=== PATIENT | female | born 1955 | race Caucasian/White ===

== ENCOUNTER 2020-12-25 08:13 | Outpatient (RCR) | payer MEDICARE, SELFPAY ==
[2020-12-25] MEDS: COVID-19 VACC, MRNA(PFIZER)/PF 30 MCG/0.3 ML SYRINGE IM (14:20)
[2021-01-25] MEDS: COVID-19 VACC, MRNA(PFIZER)/PF 30 MCG/0.3 ML SYRINGE IM (15:46)
== END 2021-03-19 23:59 ==
LOC: IMMUN 08:13
PROVIDERS: PCP Internal Medicine; Visit Provider Family Medicine
DX: Z23 Encounter for immunization (principal)
CPT/HCPCS: 0001A; 0002A; 91300

== ENCOUNTER 2021-10-22 12:37 | Day surgery (SDC) | payer MEDICARE, MEDICAID, SELFPAY ==
[2021-10-22 13:20] VITALS: BP 132/60; PULSE 86; RESP 16; TEMP 36.4; O2SAT 96; BMI 36.3
--- NOTE | 2021-10-22 13:30 | COLBX_PTH ---
PATIENT: ASHA QUINTERO LOC: EN U#:[id number] AGE/SX: 66/F ROOM: RE10/22/[address]: Dr. Tj Moe DO : 1955 BED: DIS: 10/22/2021 SPEC #: [id number] RECD: 10/22/21 16:58 STATUS: BRY BALAJI #: [id number] HANK: 10/22/21 13:[address]: Tj Moe DEPT: SURGICAL PATHOLOGY RECD BY: Jihan Ty ENTERED: 10/23/21 09:20 SP TYPE: COLON BX OTHR DR: Dr. Juliann Otoole, Tissues: A - Duodenum, NOS B - Esophagus, NOS C - Gastric mucous membrane D - Gastric mucous membrane Procedures: Trichrome (control) Special Stain Group II Surgery Specimen Level IV Alcian Blue/PAS (control) HEADER OPERATION: Colonoscopy, EGD ([facility] [place]) PRE-OP DIAGNOSIS: Anemia, diarrhea, dysphagia TISSUE SUBMITTED: A ? Duodenum biopsy, B ? Distal esophagus biopsy, C ? Biopsy of gastric folds, D ? Colitis at hepatic flexure biopsy MICROSCOPIC DIAGNOSIS A. Duodenum, biopsy: No pathologic change. B. Distal esophagus, biopsy: Fragments of gastric mucosa with mild chronic inflammation. No evidence of goblet cell metaplasia. See comment. C. Gastric folds, biopsy: Chronic gastritis. See comment. D. Colon at hepatic flexure, biopsy: Collagenous colitis. See comment. AM:leatha 10/24/2021 COMMENT B. Alcian blue/PAS stain with matched control supports the above diagnosis. C. Immunohistochemistry for Helicobacter pylori can be performed if clinically indicated. Please notify the Laboratory if it is needed. D. Trichrome stain with matched control was used in the evaluation of this case. MICROSCOPIC DESCRIPTION Slides are reviewed. GROSS DESCRIPTION A - Received in fixative is one container labeled with the patient's name and designated duodenum biopsy. The specimen consists of two irregular fragments of light ling soft tissue that in aggregate measure 0.8 x 0.3 x 0.1 cm. The specimen is totally submitted in one cassette. B - Received in fixative is one container labeled with the patient's name and designated distal esophagus. The specimen consists of two irregular fragments of light ling soft tissue that in aggregate measure 0.6 x 0.4 x 0.1 cm. The specimen is totally submitted in one cassette. C - Received in fixative is one container labeled with the patient's name and designated biopsy of gastric folds. The specimen consists of two irregular fragments of light ling soft tissue that in aggregate measure 0.8 x 0.4 x 0.1 cm. The specimen is totally submitted in one cassette. D - Received in fixative is one container labeled with the patient's name and designated colitis at hepatic flexure biopsy. The specimen consists of multiple irregular fragments of light ling soft tissue that in aggregate measure 0.5 x 0.6 x 0.1 cm. The specimen is totally submitted in one cassette. / SJ:rg 10/23/2021 TC:3 CPT: 33830 x4, 28153 x2
[2021-10-22] MEDS: Lactated Ringers 1,000 ML 15 ML IV (13:31)
--- NOTE | 2021-10-22 13:46 | PCM.HP.BLA ---
History and Physical Date of Admission: 10/22/21 66 F who presents to the office today for further evaluation of anemia. 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 She underwent stent placement and is currently on Brilinta due to frequent bruising from aspirin therapy. She also has a history of CAD status post PTCA with stent. She has no history of myocardial infarction. Several years ago she was diagnosed with a brain aneurysm and underwent clipping. She has a history of aortic aneurysm and her last imaging had showed the aortic aneurysm was 3.2 cm. She has a very difficult time with her diabetes requiring the use of multiple oral medicines. Her last hemoglobin was up to 11 after multiple blood transfusions and iron infusions as per the patient. She has never had a upper or lower endoscopy. She did have a CT scan of the abdomen pelvis earlier this year in December and that it showed some thickening in the stomach. No obvious lesions were seen in her colon. She says that she has been having diarrhea and it was attributed to her Metformin. However her diarrhea has been very difficult to control prior to her going on Metformin. She has been having difficulty with loose stool with undigested food and black dots. Also getting cramps and then she has stool looks like a green gel with a lot of odor. Sometimes swallowing food she feels like food is getting stuck. History of neck surgery to fix ruptured disk in her neck in 2002. Atrophied kidney with stent placed in renal artery. Following this she became fatigued and did not feel right, workup found that she is anemic. Taking vitamin b12 oral (previously injection) and iron. She is on metformin for diabetic management. She has a lot of concern about need for colonoscopy due to living situation. Has aortic aneurysm. She was having a lot of difficulty with bruising and was taken off aspirin, continues Brilinta. Reports abdominal hernia with surgery that resulted in a lot of scar tissue. Require oxygen at night for sleep. She has a high level of stress including a daughter with scleroderma who she provides care for. Also caring for handicap and behavioral sister living with her. ROS Const Constitutional: No anorexia, fatigue, fever(s), weight change or sleep problems Eyes Eyes: No change in vision ENT ENT: No abnormal hearing, difficulty swallowing, mouth lesions, tongue swelling or throat swelling Resp Respiratory: No cough or shortness of breath Cardio Cardiology: No chest pain at rest, chest pain with exertion, shortness of breath or dyspnea on exertion Gastro GI: No difficulty swallowing Genitourinary-Female: No difficulty urinating or burning urination Musc Musculoskeletal: No joint pain, joint swelling, muscle weakness or decreased muscle mass Skin Skin: No hair loss in leg, yellowing of the eye, itchy eyes, rash, skin ulcer or skin swelling Neuro Neurology: No abnormal hearing, abnormal movements, confusion, unsteady gait/balance or memory loss Psych Psychiatric: No anxiety, No confusion and No memory loss Endo Endocrine: No fatigue or weight change Aller/Imm Allergy/Immunologic: No itchy eyes, throat swelling or tongue swelling Lane/Lymp Hematologic/Lymphatic: No easy bleeding, easy bruising or enlarged lymph nodes Exam Const General: cooperative and comfortable Nutritional Appearance: average body habitus and well nourished HENMT Head: normal to inspection Ears: hearing grossly normal bilaterally Nose: external nose normal Face and sinus: normal facial exam Mouth: oral mucosae normal Throat: posterior oropharynx normal Eyes General: appearance normal, both eyes and all related structures Neck Neck: normal visual inspection Chest Chest palpation & inspection: normal inspection of the chest and normal palpation of entire chest wall Resp Effort & Inspection: normal respiratory effort Auscultation: Bilateral: Clear to Auscultation Cardio Palpation: normal PMI Rate: regular rate Rhythm: regular rhythm GI Inspection: obesity and other (Ventral hernia.) Auscultation: normal bowel sounds Percussion: normal to percussion Palpation: no hepatosplenomegaly Skin General: no rashes or lesions noted Neuro General: patient alert Extrem General: normal to inspection Psych Affect: normal affect Assessment and Plan Assessment and Plan (1) Anemia: Plan - Dr. Spencer Friend, DO: She should undergo an upper and lower endoscopy to evaluate as much as her GI tract if possible. If they did not reveal any signs of bleeding or malabsorption then she will need to undergo capsule endoscopy. I am concerned because she is never had a colonoscopy and she has a strong family history of polyps in her sister with more than 9 polyps each time she had a colonoscopy. (2) Diarrhea: Status: Acute Plan - Dr. Spencer Friend, DO: We will evaluate her upper lower GI tract for diarrhea secondary to dumping, medication induced diarrhea anemia, villous adenoma. (3) Dysphagia: Status: Acute Plan - Dr. Spencer Friend, DO: She is also complaining of a lot of trouble swallowing liquids pills. She will undergo upper endoscopy evaluation of her GI tract for eosinophilic esophagitis, esophagitis, esophageal ring Or esophageal stricture. I have re-examined the patient. There are no clinical changes since date of exam.
[2021-10-22 14:41] VITALS: BP 132/60; BP 93/44; PULSE 69; RESP 16; TEMP 36.7; O2SAT 97
--- NOTE | 2021-10-22 14:44 | OP.EGD_ITS ---
Patient Name: Mercy Zhang Procedure Date: 10/22/2021 1:51 PM Date of : 1955 Age: 66 Procedure: Upper GI endoscopy Indications: Dysphagia Providers: Tj Moe DO Medicines: See the Anesthesia note for documentation of the administered medications Patient Profile: This is a 66 year old female. Refer to note in patient chart for documentation of history and physical. Patient has symptoms of chronic dysphagia and dysphagia with solids. Complications: No immediate complications. Procedure: Pre-Anesthesia Assessment: - Prior to the procedure, a History and Physical was performed, and patient medications and allergies were reviewed. The patient is competent. The risks and benefits of the procedure and the sedation options and risks were discussed with the patient. All questions were answered and informed consent was obtained. Patient identification and proposed procedure were verified by the physician in the pre-procedure area. Mental Status Examination: alert and oriented. Airway Examination: normal oropharyngeal airway and neck mobility. Respiratory Examination: clear to auscultation. CV Examination: normal. Prophylactic Antibiotics: The patient does not require prophylactic antibiotics. Prior Anticoagulants: The patient has taken no previous anticoagulant or antiplatelet agents. ASA Grade Assessment: II - A patient with mild systemic disease. After reviewing the risks and benefits, the patient was deemed in satisfactory condition to undergo the procedure. The anesthesia plan was to use moderate sedation / analgesia (conscious sedation). Immediately prior to administration of medications, the patient was re-assessed for adequacy to receive sedatives. The heart rate, respiratory rate, oxygen saturations, blood pressure, adequacy of pulmonary ventilation, and response to care were monitored throughout the procedure. The physical status of the patient was re-assessed after the procedure. After obtaining informed consent, the endoscope was passed under direct vision. Throughout the procedure, the patient's blood pressure, pulse, and oxygen saturations were monitored continuously. The colonoscope was introduced through the mouth, and advanced to the second part of duodenum. The upper GI endoscopy was accomplished without difficulty. The patient tolerated the procedure well. Moderate Sedation: Moderate (conscious) sedation was administered by the endoscopy nurse and supervised by the endoscopist. The following parameters were monitored: oxygen saturation, heart rate, blood pressure, and response to care. Total physician intraservice time was 15 minutes. Scope In: 2:08:08 PM Scope Out: 2:16:52 PM Total Procedure Duration Time 0 hours 8 minutes 44 seconds Findings: LA Grade A (one or more mucosal breaks less than 5 mm, not extending between tops of 2 mucosal folds) esophagitis with no bleeding was found 34 to 35 cm from the incisors. Biopsies were taken with a cold forceps for histology. Verification of patient identification for the specimen was done. Estimated blood loss was minimal. A moderate Schatzki ring was found in the middle third of the esophagus. A guidewire was placed and the scope was withdrawn. Dilation was performed with a Savary dilator with no resistance at 54 Fr. The dilation site was examined following endoscope reinsertion and showed moderate improvement in luminal narrowing. Estimated blood loss was minimal. Diffuse prominent gastric folds were found in the gastric body. Biopsies were taken with a cold forceps for histology. Verification of patient identification for the specimen was done. Estimated blood loss was minimal. Localized mildly erythematous mucosa without active bleeding and with no stigmata of bleeding was found in the duodenal bulb and in the first portion of the duodenum. Biopsies were taken with a cold forceps for histology. Estimated blood loss was minimal. Impression: - LA Grade A reflux esophagitis. Biopsied. - Moderate Schatzki ring. Dilated. - Enlarged gastric folds. Biopsied. - Erythematous duodenopathy. Biopsied. Recommendation: - Discharge patient to home. - Resume previous diet. - Continue present medications. - Await pathology results. - Repeat upper endoscopy in 1 year for surveillance. - Return to GI office in 2 weeks. Procedure Code(s): --- Professional --- 45112, Esophagogastroduodenoscopy, flexible, transoral; with insertion of guide wire followed by passage of dilator(s) through esophagus over guide wire 88527, 59, Esophagogastroduodenoscopy, flexible, transoral; with biopsy, single or multiple 86523, 59, Moderate sedation services provided by the same physician or other qualified health resident care technician performing the diagnostic or therapeutic service that the sedation supports, requiring the presence of an independent trained observer to assist in the monitoring of the patient's level of consciousness and physiological status; initial 15 minutes of intraservice time, patient age 5 years or older CPT copyright 2017 [employer]. All rights reserved. The codes documented in this report are preliminary and upon salt maker review may be revised to meet current compliance requirements. Tj Moe DO 10/22/2021 2:44:28 PM This report has been signed electronically. Number of Addenda: 1 Note Initiated On: 10/22/2021 1:51 PM Addendum Number: 1 Addendum Date: 06/19/2022 6:12:37 AM MAC was used instead of moderate sedation for the patient. Tj Moe DO 06/19/2022 6:12:41 AM This report has been signed electronically.
--- NOTE | 2021-10-22 14:44 | OP.CCLET_ITS ---
06/19/2022 Juliann Otoole Do Re : Upper GI endoscopy procedure for Mercy Zhang Dear Sydnie This procedure was performed on Friday, October 22, 2021. My impressions and recommendations are as follows: Impressions : - LA Grade A reflux esophagitis. Biopsied. - Moderate Schatzki ring. Dilated. - Enlarged gastric folds. Biopsied. - Erythematous duodenopathy. Biopsied. Recommendations : - Discharge patient to home. - Resume previous diet. - Continue present medications. - Await pathology results. - Repeat upper endoscopy in 1 year for surveillance. - Return to GI office in 2 weeks. My findings are described in the full procedure note, which is enclosed. If I can be of further assistance, please feel free to contact me at . Sincerely, Tj Moe, 10/22/2021 2:44:28 PM This report has been signed electronically.
[2021-10-22 14:45] VITALS: BP 132/60; BP 91/40; PULSE 70; RESP 16; O2SAT 98
[2021-10-22 14:46] LABS: Bedside Glucose 206 mg/dL (70-110)
--- NOTE | 2021-10-22 14:49 | OP.COLON_ITS ---
Patient Name: Mercy Zhang Procedure Date: 10/22/2021 2:18 PM Date of : 1955 Age: 66 Procedure: Colonoscopy Indications: Iron deficiency anemia Providers: Tj Moe DO Medicines: See the Anesthesia note for documentation of the administered medications Patient Profile: This is a 66 year old female. Refer to note in patient chart for documentation of history and physical. Patient has symptoms of chronic dysphagia and dysphagia with solids. Last Colonoscopy: date unknown. Complications: No immediate complications. Procedure: Pre-Anesthesia Assessment: - Prior to the procedure, a History and Physical was performed, and patient medications and allergies were reviewed. The patient is competent. The risks and benefits of the procedure and the sedation options and risks were discussed with the patient. All questions were answered and informed consent was obtained. Patient identification and proposed procedure were verified by the physician in the pre-procedure area. Mental Status Examination: alert and oriented. Airway Examination: normal oropharyngeal airway and neck mobility. Respiratory Examination: clear to auscultation. CV Examination: normal. Prophylactic Antibiotics: The patient does not require prophylactic antibiotics. Prior Anticoagulants: The patient has taken no previous anticoagulant or antiplatelet agents. ASA Grade Assessment: II - A patient with mild systemic disease. After reviewing the risks and benefits, the patient was deemed in satisfactory condition to undergo the procedure. The anesthesia plan was to use moderate sedation / analgesia (conscious sedation). Immediately prior to administration of medications, the patient was re-assessed for adequacy to receive sedatives. The heart rate, respiratory rate, oxygen saturations, blood pressure, adequacy of pulmonary ventilation, and response to care were monitored throughout the procedure. The physical status of the patient was re-assessed after the procedure. After I obtained informed consent, the scope was passed under direct vision. Throughout the procedure, the patient's blood pressure, pulse, and oxygen saturations were monitored continuously. The colonoscope was introduced through the anus and advanced to the cecum, identified by appendiceal orifice and ileocecal valve. The colonoscopy was performed without difficulty. The patient tolerated the procedure well. The quality of the bowel preparation was good. Moderate Sedation: Moderate (conscious) sedation was administered by the endoscopy nurse and supervised by the endoscopist. The following parameters were monitored: oxygen saturation, heart rate, blood pressure, and response to care. Total physician intraservice time was 15 minutes. Scope In: 2:21:10 PM Scope Withdrawal Time 0 hours 11 minutes 23 seconds Scope Out: 2:38:26 PM Total Procedure Duration Time 0 hours 17 minutes 16 seconds Findings: The perianal and digital rectal examinations were normal. Multiple small patchy angiodysplastic lesions with stigmata of recent bleeding were found in the transverse colon, at the hepatic flexure, in the ascending colon and in the cecum. Coagulation for bleeding prevention using argon beam at 0.3 liters/minute and 20 harvey was successful. Estimated blood loss was minimal. Scattered mild inflammation characterized by congestion (edema), erythema and loss of vascularity was found in the descending colon, in the transverse colon and at the hepatic flexure. Biopsies were taken with a cold forceps for histology. Verification of patient identification for the specimen was done. Estimated blood loss was minimal. Impression: - Multiple recently bleeding colonic angiodysplastic lesions. Treated with argon beam coagulation. - Scattered mild inflammation was found in the descending colon, in the transverse colon and at the hepatic flexure secondary to colitis. Biopsied. Recommendation: - Discharge patient to home. - Resume previous diet. - Continue present medications. - Await pathology results. - Repeat colonoscopy in 5 years for surveillance. - Return to GI office in 2 weeks. Procedure Code(s): --- Professional --- 01241, 59, Colonoscopy, flexible; with control of bleeding, any method 81032, Colonoscopy, flexible; with biopsy, single or multiple 26054, 59, Moderate sedation services provided by the same physician or other qualified health client care manager performing the diagnostic or therapeutic service that the sedation supports, requiring the presence of an independent trained observer to assist in the monitoring of the patient's level of consciousness and physiological status; initial 15 minutes of intraservice time, patient age 5 years or older CPT copyright 2017 [employer]. All rights reserved. The codes documented in this report are preliminary and upon medical biller coder review may be revised to meet current compliance requirements. Tj Moe DO 10/22/2021 2:48:12 PM This report has been signed electronically. Number of Addenda: 1 Note Initiated On: 10/22/2021 2:18 PM Addendum Number: 1 Addendum Date: 06/19/2022 6:12:49 AM MAC was used instead of moderate sedation for the patient. Tj Moe DO 06/19/2022 6:12:56 AM This report has been signed electronically.
--- NOTE | 2021-10-22 14:49 | OP.CCLET_ITS ---
06/19/2022 Juliann Otoole Do Re : Colonoscopy procedure for Mercy Zhang Dear Sydnie This procedure was performed on Friday, October 22, 2021. My impressions and recommendations are as follows: Impressions : - Multiple recently bleeding colonic angiodysplastic lesions. Treated with argon beam coagulation. - Scattered mild inflammation was found in the descending colon, in the transverse colon and at the hepatic flexure secondary to colitis. Biopsied. Recommendations : - Discharge patient to home. - Resume previous diet. - Continue present medications. - Await pathology results. - Repeat colonoscopy in 5 years for surveillance. - Return to GI office in 2 weeks. My findings are described in the full procedure note, which is enclosed. If I can be of further assistance, please feel free to contact me at . Sincerely, Tj Moe, 10/22/2021 2:48:12 PM This report has been signed electronically.
[2021-10-22 14:50] VITALS: BP 102/57; BP 132/60; PULSE 65; RESP 16; O2SAT 98
[2021-10-22 14:55] VITALS: BP 132/60; BP 93/40; PULSE 64; RESP 16; TEMP 36; O2SAT 99
[2021-10-22 15:29] VITALS: BP 132/60
== END 2021-10-22 23:59 | disposition home or self-care (01) ==
LOC: EN 12:42 → AC 12:42
PROVIDERS: PCP Internal Medicine; Referring Provider Internal Medicine; Visit Provider Internal Medicine Gastroenterology
PROC: 0DJD8ZZ Inspection of Lower Intestinal Tract, Via Natural or Artificial Opening Endoscopic (ICD-10-PCS; CPT 45378; principal; 2021-10-22 13:25)
DX: K52.831 Collagenous colitis (principal); J44.9 Chronic obstructive pulmonary disease, unspecified; E11.9 Type 2 diabetes mellitus without complications; Z79.4 Long term (current) use of insulin; K22.2 Esophageal obstruction; K29.50 Unspecified chronic gastritis without bleeding; K21.00 Gastro-esophageal reflux disease with esophagitis, without bleeding; F17.200 Nicotine dependence, unspecified, uncomplicated; R19.7 Diarrhea, unspecified; R13.10 Dysphagia, unspecified; E66.9 Obesity, unspecified; I25.10 Atherosclerotic heart disease of native coronary artery without angina pectoris; I25.2 Old myocardial infarction; E78.00 Pure hypercholesterolemia, unspecified; I12.9 Hypertensive chronic kidney disease with stage 1 through stage 4 chronic kidney disease, or unspecified chronic kidney disease; N18.9 Chronic kidney disease, unspecified; F41.9 Anxiety disorder, unspecified; M19.90 Unspecified osteoarthritis, unspecified site; Z68.36 Body mass index [BMI] 36.0-36.9, adult; Z95.5 Presence of coronary angioplasty implant and graft; Z99.81 Dependence on supplemental oxygen; Z86.16 Personal history of COVID-19; Z79.84 Long term (current) use of oral hypoglycemic drugs; Z79.899 Other long term (current) drug therapy
CPT/HCPCS: 45380; 43248; 43239; 45382; 82962; 88305; 88313; J7120; C1769; J2405

== ENCOUNTER 2021-12-20 14:43 | Outpatient (CLI) | payer BC, MEDICAID, SELFPAY ==
[2021-12-20 15:28] LABS: Absolute Lymphocyte Count 1.78 X10^3/uL (0.83-4.51); Absolute Neutrophil Count 5.6 X10^3/uL (2.0-7.7); Basophil# 0.07 X10^3/uL; Basophil% 0.8 % (0-1); Eosinophil# 0.31 X10^3/uL; Eosinophils% 3.6 % (0-5); Hematocrit 40.7 % (37-47); Hemoglobin 13.2 g/dL (12.0-15.0); Lymphocyte # 1.78 X10^3/ul (0.83-4.51); Lymphocyte % 20.6 % (19-41); Mean Corp Hgb Conc 32.4 g/dL (32-36); Mean Corpuscular Hgb 28.9 pg (27.0-32.0); Mean Corpuscular Volume 89.1 fL (81-99); Mean Platelet Vol. 10.6 fl (6.2-12.0); Monocyte# 0.81 X10^3/uL; Monocyte% 9.4 % (0-10); NRBC Flagged by Analyzer 0 % (0-5); Platelet Count 265 K/mm3 (150-450); RBC Distribution Width CV 13.8 % (11.6-14.6); RBC Distribution Width SD 45.1 fl (35.1-43.9); RET-HE 33.6 pg (30-35); Red Blood Count 4.57 M/mm3 (4.2-5.4); White Blood Count 8.6 K/mm3 (4.4-11.0)
[2021-12-20 15:35] LABS: Erythrocyte Sedimentation Rate 23 mm/hr (0-30)
[2021-12-20 16:10] LABS: AST(SGOT) 17 U/L (15-37); Alanine Aminotransfer ALT/SGPT 28 U/L (13-56); Albumin, Serum 3.9 g/dL (3.2-5.0); Alkaline Phosphatase 43 U/L (45-117); Anion Gap 5 (5-15); BUN 20 mg/dL (7-18); BUN/Creat Ratio 17.2 RATIO (10-20); CRP < 2.90 mg/L (0.0-3.0); Chloride 103 mmol/L (98-107); Creatinine, Serum 1.16 mg/dL (0.55-1.02); EST Glomerular Filtration Rate 50 mL/min (>60); Est Glom Filt Rate - Afr Amer 60 mL/min (>60); Ferritin 10 ng/mL (8-252); Globulin 4.1 g/dL (2.2-4.2); Glucose 106 mg/dL (74-106); LDH 206 U/L (84-246); Potassium 3.9 mmol/L (3.5-5.1); Rheumatoid Factor < 10.0 IU/mL (<15); Sodium Level 137 mmol/L (136-145)
[2021-12-22 16:08] LABS: Anti-Centromere B Ab <0.2 AI (0.0-0.9); Anti-Chromatin <0.2 AI (0.0-0.9); Anti-Jo <0.2 AI (0.0-0.9); Anti-Scleroderma-70 AB <0.2 AI (0.0-0.9); RNP Ab <0.2 AI (0.0-0.9); SJOGREN'S Anti-SS-A test < 0.2 AI (0.0-0.9); SJOGREN'S Anti-SS-B test < 0.2 AI (0.0-0.9); Smith Ab <0.2 AI (0.0-0.9)
[2021-12-22 17:04] LABS: Anti-dsDNA Ab <1 IU/mL (0-9)
[2021-12-30 14:09] LABS: Complement C3 149 mg/dL (82-167); Cytoplasmic Ab (C-ANCA) <1:20 titer (Neg:<1:20); Dilute Prothrombin Time (dPT) 35.2 sec (0.0-47.6); Dilute Russell Viper Venom 32.2 sec (0.0-47.0); Endomysial Antibody IgA Negative (Negative); Immunoglobulin A 280 mg/dL (87-352); Immunoglobulin E 110 IU/mL (6-495); Immunoglobulin G 1130 mg/dL (586-1602); Immunoglobulin M 45 mg/dL (26-217); PTT-LA 29.1 sec (0.0-51.9); Protein S, Free 109 % (61-136); Thrombin Time 17.4 sec (0.0-23.0); Transferrin 328 mg/dL (192-364)
[2021-12-30 17:56] LABS: Antithrombin 3 Function 102 % (75-135); CCP IgG Antibodies 9 units (0-19); Complement CH50 > 60 U/mL (>41); Interpretation Comment: (.); Perinuclear Ab (P-ANCA) <1:20 titer (Neg:<1:20); Protein S, Total 91 % (60-150); t-Transglutaminase IgA <2 U/mL (0-3)
== END 2021-12-20 23:59 | disposition home or self-care (01) ==
LOC: LAB 14:45
PROVIDERS: PCP Internal Medicine; Referring Provider Internal Medicine Gastroenterology; Visit Provider Internal Medicine Gastroenterology
DX: R19.7 Diarrhea, unspecified (principal); R13.10 Dysphagia, unspecified
CPT/HCPCS: 80053; 81241; 82728; 82784; 82785; 83516; 83615; 84466; 85025; 85045; 85300; 85305; 85306; 85652; 86140; 86160; 86162; 86200; 86225; 86235; 86255; 86256; 86431

== ENCOUNTER → 2022-05-19 | Outpatient (CLI) | payer MEDICARE, MEDICAID, SELFPAY ==
[2022-05-19 17:11] LABS: AST(SGOT) 18 U/L (15-37); Alanine Aminotransfer ALT/SGPT 29 U/L (13-56); Albumin, Serum 3.7 g/dL (3.2-5.0); Alkaline Phosphatase 36 U/L (45-117); Bilirubin, Direct 0.12 mg/dL (0.00-0.30); Globulin 3.9 g/dL (2.2-4.2); Protein, Total 7.6 g/dL (6.4-8.2)
[2022-05-21 16:31] LABS: Anti-Mitochondrial AB <20.0 Units (0.0-20.0); Anti-Smooth Muscle ABS 8 Units (0-19)
== END | disposition home or self-care (01) ==
LOC: LAB 15:26
PROVIDERS: PCP Internal Medicine; Referring Provider Nurse Practitioner Adult Health; Visit Provider Nurse Practitioner Adult Health
DX: R76.8 Other specified abnormal immunological findings in serum (principal)
CPT/HCPCS: 36415; 80076; 83516

== ENCOUNTER 2022-06-07 16:51 | Emergency (ER) | payer MEDICARE, MEDICAID, SELFPAY ==
[2022-06-07 16:52] VITALS: BP 162/101; PULSE 79; RESP 16; TEMP 36.3; O2SAT 97; BMI 37.8
[2022-06-07 17:09] VITALS: BP 161/102; PULSE 79; RESP 16; TEMP 36.3; O2SAT 97
[2022-06-07 17:44] LABS: Absolute Lymphocyte Count 1.26 X10^3/uL (0.83-4.51); Absolute Neutrophil Count 9.8 X10^3/uL (2.0-7.7); Basophil# 0.05 X10^3/uL; Basophil% 0.4 % (0-1); Eosinophil# 0.15 X10^3/uL; Eosinophils% 1.2 % (0-5); Hematocrit 40.1 % (37-47); Hemoglobin 13.3 g/dL (12.0-15.0); Lymphocyte # 1.26 X10^3/ul (0.83-4.51); Lymphocyte % 10.1 % (19-41); Mean Corp Hgb Conc 33.2 g/dL (32-36); Mean Corpuscular Hgb 29.4 pg (27.0-32.0); Mean Corpuscular Volume 88.7 fL (81-99); Mean Platelet Vol. 10.3 fl (6.2-12.0); Monocyte% 8.8 % (0-10); NRBC Flagged by Analyzer 0 % (0-5); Neutrophil # 9.83 X10^3/uL (2.7-7.7); Neutrophil % 78.9 % (47-70); Platelet Count 293 K/mm3 (150-450); RBC Distribution Width CV 13.4 % (11.6-14.6); RBC Distribution Width SD 43.3 fl (35.1-43.9); Red Blood Count 4.52 M/mm3 (4.2-5.4); White Blood Count 12.5 K/mm3 (4.4-11.0)
--- NOTE | 2022-06-07 17:54 | CT_ITS ---
STUDY: CT ABDOMEN AND PELVIS WITH CONTRAST REASON FOR EXAM: Female, 66 years old. abd pain RADIATION DOSAGE (If Supplied By Facility): CTDIvol = ( 23.61 ) mGy, DLP = ( 1148.17 ) mGycm TECHNIQUE: Transaxial images were obtained from the dome of the diaphragm to the symphysis pubis without oral contrast. IV 100mL Isovue-300 was administered. Sagittal and coronal images were reconstructed. Individualized dose optimization techniques were used for this CT. COMPARISON: None. FINDINGS: The visualized lung bases are unremarkable. The visualized portions of the heart are within normal limits. Normal liver. Normal gallbladder and extrahepatic biliary system. Normal spleen. There is diffuse enlargement of the pancreas with adrianna-pancreatic edema (anterior and posterior to the pancreatic body and tail) suggesting acute pancreatitis. No focal fluid collection. Normal bilateral adrenal glands. There is severe cortical atrophy of the right kidney, consistent with chronic medical renal disease. No hydronephrosis. Simple left renal cyst. No required imaging follow-up needed given high likelihood of benign nature. Diffuse wall thickening of the stomach with slight amount of adjacent induration. Small collection of air along the medial wall of the gastric antrum is seen on image 33 of series 2 that is contiguous with the gastric outflow on image 31. No associated wall thickening. No pneumoperitoneum. Normal small intestine. There are multiple colonic diverticula consistent with diverticulosis. The appendix is visualized and appears normal. There is diffuse atherosclerotic calcification of the abdominal aorta, without a demonstrated aneurysm. Normal inferior vena cava. Normal retroperitoneum. Normal urinary bladder. Anterior abdominal wall fat-containing hernias are identified in the supraumbilical and infraumbilical (largest) regions, both visible on image 91 series 602). Degenerative changes throughout the lumbar spine. There are also degenerative changes of the right more than left hip. Fluid collection anterior to the right hip measuring 2.3 x 4.3 cm may be sequela of previous iliopsoas injury or bursal fluid collection. CT/Abdomen/Pelvis W IV Cont ONLY IMPRESSION: 1. Acute interstitial pancreatitis without focal/drainable fluid collection. 2. Gastric wall thickening could represent artifact nondistention versus gastritis/gastropathy. 3. Anterior abdominal wall fat-containing hernias. Electronically Signed: Kedar Rao MD ([place]) at 19:24 EDT Reading Location ID and State: [facility] / [place] , Service support ,
--- NOTE | 2022-06-07 17:56 | EKG12_ITS ---
Test Reason : CHEST PAIN Blood Pressure : / mmHG Vent. Rate : 072 BPM Atrial Rate : 072 BPM P-R Int : 186 ms QRS Dur : 086 ms QT Int : 398 ms P-R-T Axes : 061 043 040 degrees QTc Int : 435 ms Normal sinus rhythm Normal ECG Confirmed by HINA PAPPAS, KADEEM ([id number]), newspaper copy editor WOLF MENDEZ ([id number]) on 06/10/2022 7:54:41 AM Referred By: Confirmed By:KADEEM SANTAMARIA MD
--- NOTE | 2022-06-07 17:57 | ED.VIS.GI ---
HPI HPI - GI History of Present Illness Chief Complaint: Abd Pain Informant: patient Narrative Narrative: Patient's been having abdominal pain for about a week. It is mostly upper abdomen. It does wrap around to her back. Sometimes it is lower. Now she states its all over. It is getting progressively worse but it is better today than it was yesterday. She has been nauseated once or twice but never had vomiting and she is still eating normally. She has some chronic diarrhea. She sees Dr. Moe for this. She does states she has had pancreatitis in the past related to the medications but those meds were stopped. She is not sure what med caused it. She also has a history of an aneurysm but states it was just checked within the last 2 months and it was only at about a 2. She was told it is nowhere near having surgery. Patient rarely has alcohol. Her last drink was on 14 April. Nothing makes her pain better or worse. [facility] Medical History Abdominal aortic aneurysm Anemia Anemia Anxiety Arteriosclerosis Arthritis Cardiology follow-up encounter Chronic cough COPD (chronic obstructive pulmonary disease) COVID Diarrhea Dysphagia Easy bruising Excessive bleeding Family history of brain aneurysm Gastric reflux High cholesterol History of echocardiogram History of edema History of heart attack History of kidney disease History of pain when walking History of stent insertion of renal artery History of stress test Hypertension Injury of head and neck Insulin dependent diabetes mellitus Leg cramps On home oxygen therapy Smoker Wears glasses Home Medications cyclobenzaprine 10 mg tablet 10 mg PO QHS PRN Sleep 10/17/21 [History Last Taken Unknown] duloxetine 30 mg capsule,delayed release 30 mg PO DAILY ANXIETY 10/17/21 [History Last Taken Unknown] empagliflozin 25 mg tablet (Jardiance) 25 mg PO .AFTERNOON 10/17/21 [History Last Taken Unknown] ferrous sulfate 325 mg (65 mg iron) tablet (FeroSul) 325 mg PO BID SUPPLEMENT 10/17/21 [History Last Taken Unknown] gabapentin 300 mg tablet 300 mg PO DAILY 10/17/21 [History Last Taken Unknown] gabapentin 600 mg tablet 600 mg PO QHS 10/17/21 [History Last Taken Unknown] glipizide 10 mg tablet 10 mg PO QHS 10/17/21 [History Last Taken Unknown] hydrochlorothiazide 25 mg tablet 25 mg PO DAILY 10/17/21 [History Last Taken Unknown] insulin glargine U-300 conc 300 unit/mL (1.5 mL) subcutaneous pen (Wilmer Maciel U-300 Insulin) 25 unit subcut DAILY 10/17/21 [History Last Taken Unknown] metformin 500 mg tablet 1,000 mg PO BID 10/17/21 [History Last Taken Unknown] metoprolol succinate 100 mg tablet,extended release 24 hr 100 mg PO BID 10/17/21 [History Last Taken 10/22/21 11:00] omeprazole 40 mg capsule,delayed release 40 mg PO BID 10/17/21 [History Last Taken 10/22/21 11:00] rosuvastatin 40 mg tablet 40 mg PO QHS 10/17/21 [History Last Taken Unknown] spironolactone 50 mg tablet 50 mg PO DAILY 10/17/21 [History Last Taken Unknown] ticagrelor 90 mg tablet (Brilinta) 90 mg PO BID BLOOD THINNER 10/17/21 [History Last Taken Unknown] valsartan 160 mg tablet 160 mg PO BID 10/17/21 [History Last Taken 10/22/21 11:00] diphenoxylate-atropine 2.5 mg-0.025 mg tablet (Lomotil) 1 tab PO BID PRN diarrhea #60 tabs 05/19/22 [Rx Last Taken Unknown] budesonide 3 mg capsule,delayed,extended release 9 mg PO DAILY #270 ea 06/05/22 [Rx Last Taken Unknown] ondansetron 4 mg disintegrating tablet 4 mg PO Q8H PRN nausea and vomiting #10 tabs 06/07/22 [Rx Last Taken Unknown] oxycodone-acetaminophen 5 mg-325 mg tablet (Percocet) 1 tab PO Q6H PRN pain 3 days #10 tabs 06/07/22 [Rx Last Taken Unknown] Allergy/AdvReac Type Severity Reaction Status Date / Time bupropion [From Wellbutrin] Allergy Hives Verified 06/07/22 16:55 clopidogrel [From Plavix] Allergy Rash Verified 06/07/22 16:55 codeine AdvReac Nausea/Vom/ Verified 06/07/22 16:55 Diarrhea Surgical History History of bilateral oophorectomies History of History of carpal tunnel surgery History of coronary artery stent placement History of inguinal hernia repair History of neck surgery History of rotator cuff surgery History of umbilical hernia repair Social History Smoking Status: Current every day smoker tobacco type: cigarettes ROS ROS ED Constitutional Constitutional ED: Denies chills or fever(s) Cardiovascular Cardiovascular: Denies chest pain or palpitations Respiratory/Chest Respiratory/Chest: Denies cough or dyspnea Gastrointestinal Gastrointestinal: Reports abdominal pain and nausea; Denies constipation, diarrhea, melena or vomiting Genitourinary Genitourinary ED: Denies dysuria, hematuria or urinary frequency Musculoskeletal Musculoskeletal: Reports back pain; Denies arthralgias, myalgias or neck pain Integumentary Denies rash Neurologic Neurologic: Denies headache(s) Psychiatric Psychiatric: Denies anxiety or depression Endocrine Endocrinology: Denies polyuria Hematologic/Lymphatic Hematologic/Lymphatic: Reports easy bleeding and easy bruising; Denies lymphadenopathy Allergic/Immunologic Allergic/Immunologic ED: Denies urticaria EXAM Physical Exam Const Vital Signs: 06/07/22 16:52 06/07/22 17:09 06/07/22 18:18 Temperature 97.3 F L 97.3 F L 96.8 F L Temperature Source Temporal Oral Temporal Pulse Rate 79 79 70 Respiratory Rate 16 16 15 Blood Pressure 162/101 H 161/102 H Blood Pressure Mean 121 121 Pulse Ox 97 97 96 Oxygen Delivery Method Room Air Room Air Room Air 06/07/22 18:19 06/07/22 19:00 Temperature 96.8 F L 97.1 F L Temperature Source Temporal Temporal Pulse Rate 67 67 Respiratory Rate 20 H 19 H Blood Pressure 170/84 H 145/63 H Blood Pressure Mean 112 90 Pulse Ox 96 96 Oxygen Delivery Method Room Air Room Air Positive well nourished and well developed General Appearance ED: well developed and NAD HEENT Reports moist mucous membranes normocephalic Eyes General Eye ED: Negative for pale conjunctiva or scleral icterus Neck no lymphadenopathy Resp normal respiratory effort Auscultation: Negative for rales, rhonchi or wheezes Cardio regular rate and regular rhythm Rhythm: Negative for abnormal rhythm GI non-tender and non-distended GI Narrative: Patient complains of pain mostly in the epigastric and left upper quadrant area. But I am not getting any tenderness. She has prior healed surgical scars with likely some incisional hernia but no tenderness. No incarceration. Back/Spine no CVA tenderness Extremity full ROM General Extremety ED: Negative for edema General Extremity: Negative for edema Neuro Sensorium / Orientation: alert Skin no wounds MDM MDM MDM Narrative Medical decision making narrative: Patient is a mild elevation of white count. The hemoglobin platelets are normal. Electrolytes are overall relatively normal. Glucose is minimally elevated. However, lipase is fairly elevated. LFTs are otherwise normal. Urine is clean. CT does show interstitial pancreatitis. Patient's recheck. She actually feels well. She would like to try to go home. I will get her on meds for nausea and pain. She has used Percocet before. We discussed clear liquid diet and very slow advance. We discussed reasons to return. We also discussed he is on valsartan. This is one of the medicines that can occasionally cause pancreatitis. We may have her hold this pending recheck. She should check in with her doctor on Thursday morning. Lab Data Attestation: I reviewed the patient's lab results. Labs: Laboratory Results - last 24 hr 06/07/22 06/07/22 06/07/22 17:03 17:35 17:35 WBC 12.5 H RBC 4.52 Hgb 13.3 Hct 40.1 MCV 88.7 MCH 29.4 MCHC 33.2 RDW Std Deviation 43.3 RDW Coeff of Dick 13.4 Plt Count 293 MPV 10.3 Immature Gran % (Auto) 0.600 Neut % (Auto) 78.9 H Lymph % (Auto) 10.1 L [place] % (Auto) 8.8 Eos % (Auto) 1.2 Baso % (Auto) 0.4 Absolute Neuts (auto) 9.8 H Absolute Lymphs (auto) 1.26 Nucleated RBC % 0 Sodium 133 L Potassium 4.7 Chloride 104 Carbon Dioxide 22.0 Anion Gap 7 BUN 15 Creatinine 0.95 Estim Creat Clear Calc 51.66 Est GFR (MDRD) Af Amer 76 Est GFR (MDRD) Non-Af 63 BUN/Creatinine Ratio 15.7 Glucose 134 H Calcium 9.3 Total Bilirubin Direct Bilirubin AST ALT Alkaline Phosphatase Total Protein Albumin Globulin Lipase Urine Color Yellow Urine Clarity Clear Urine pH 6.0 Ur Specific [place] 1.010 Urine Protein 30 H Urine Glucose (UA) 1000 H Urine Ketones Negative Urine Occult Blood 25 H Urine Nitrite Negative Urine Bilirubin Negative Urine Urobilinogen Normal Ur Leukocyte Esterase Negative Urine RBC 0-5 SEEN Urine WBC 0-5 SEEN Ur Squamous Epith Cells 0-5 SEEN Urine Bacteria 1+ Urine Mucus 0 SEEN 06/07/22 17:35 WBC RBC Hgb Hct MCV MCH MCHC RDW Std Deviation RDW Coeff of Dick Plt Count MPV Immature Gran % (Auto) Neut % (Auto) Lymph % (Auto) [place] % (Auto) Eos % (Auto) Baso % (Auto) Absolute Neuts (auto) Absolute Lymphs (auto) Nucleated RBC % Sodium Potassium Chloride Carbon Dioxide Anion Gap BUN Creatinine Estim Creat Clear Calc Est GFR (MDRD) Af Amer Est GFR (MDRD) Non-Af BUN/Creatinine Ratio Glucose Calcium Total Bilirubin 0.50 Direct Bilirubin 0.06 AST 38 H ALT 28 Alkaline Phosphatase 47 Total Protein 7.9 Albumin 3.5 Globulin 4.4 H Lipase 1588 H Urine Color Urine Clarity Urine pH Ur Specific [place] Urine Protein Urine Glucose (UA) Urine Ketones Urine Occult Blood Urine Nitrite Urine Bilirubin Urine Urobilinogen Ur Leukocyte Esterase Urine RBC Urine WBC Ur Squamous Epith Cells Urine Bacteria Urine Mucus Radiography Diagnostic Testing: Clinical Impression(s) from Imaging Studies Abdomen/Pelvis CT 06/07/22 17:54 IMPRESSION: 1. Acute interstitial pancreatitis without focal/drainable fluid collection. 2. Gastric wall thickening could represent artifact nondistention versus gastritis/gastropathy. 3. Anterior abdominal wall fat-containing hernias. Electronically Signed: Kedar Rao MD ([place]) at 19:24 EDT Reading Location ID and State: [facility] / [place] , Service support , Discharge Plan Triage Chief Complaint: Abd Pain ED Provider: Ricky Keys Dx/Rx/DC Orders Clinical Impression: Acute pancreatitis Instructions: ED Pancreatitis Prescriptions: New oxycodone-acetaminophen [Percocet] 5-325 mg tablet 1 tab PO Q6H PRN (Reason: pain) 3 Days Qty: 10 0RF ondansetron 4 mg tablet,disintegrating 4 mg PO Q8H PRN (Reason: nausea and vomiting) Qty: 10 0RF No Action diphenoxylate-atropine [Lomotil] 2.5-0.025 mg tablet 1 tab PO BID PRN (Reason: diarrhea) Qty: 60 0RF cyclobenzaprine 10 mg tablet 10 mg PO QHS PRN (Reason: Sleep) metformin 500 mg tablet 1,000 mg PO BID Label Comments: take 2 tablets by mouth twice a day gabapentin 600 mg tablet 600 mg PO QHS glipizide 10 mg tablet 10 mg PO QHS metoprolol succinate 100 mg tablet extended release 24 hr 100 mg PO BID Label Comments: take 1 tablet by mouth twice a day omeprazole 40 mg capsule,delayed release(DR/EC) 40 mg PO BID ferrous sulfate [FeroSul] 325 mg (65 mg iron) tablet 325 mg PO BID Rx Instructions: WILL STOP 10/19 FOR egd, COLONOSCOPY 10/22 hydrochlorothiazide 25 mg tablet 25 mg PO DAILY spironolactone 50 mg tablet 50 mg PO DAILY valsartan 160 mg tablet 160 mg PO BID Label Comments: take 1 tablet by mouth twice a day rosuvastatin 40 mg tablet 40 mg PO QHS duloxetine 30 mg capsule,delayed release(DR/EC) 30 mg PO DAILY gabapentin 300 mg Tablet 300 mg PO DAILY Brilinta 90 mg tablet 90 mg PO BID Rx Instructions: WILL STOP 10/19 FOR egd, COLONOSCOPY 10/22 Jardiance 25 mg tablet 25 mg PO .AFTERNOON Toujeo SoloStar U-300 Insulin 300 unit/mL (1.5 mL) insulin pen 25 unit SUBCUT DAILY budesonide 3 mg capsule,delayed,extend.release 9 mg PO DAILY Qty: 270 0RF Rx Instructions: take three capsules to equal 9mg once a day. Primary Care Provider: Juliann Otoole Referrals: Juliann Otoole, DO [Primary Care Provider] - As soon as possible Disposition Disposition: Home, Self Care
[2022-06-07] MEDS: Ondansetron 4 MG/2 ML Vial IV (18:17)
[2022-06-07 18:18] VITALS: PULSE 70; RESP 15; TEMP 36; O2SAT 96
[2022-06-07 18:19] VITALS: BP 170/84; PULSE 67; RESP 20; TEMP 36; O2SAT 96
[2022-06-07 18:27] LABS: Anion Gap 7 (5-15); BUN 15 mg/dL (7-18); BUN/Creat Ratio 15.7 RATIO (10-20); Calcium,Total 9.3 mg/dL (8.5-10.1); Chloride 104 mmol/L (98-107); Creatinine, Serum 0.95 mg/dL (0.55-1.02); EST Glomerular Filtration Rate 63 mL/min (>60); Est Glom Filt Rate - Afr Amer 76 mL/min (>60); Estimated Creatinine Clearance 51.66 ml/min; Glucose 134 mg/dL (74-106); Potassium 4.7 mmol/L (3.5-5.1); Sodium Level 133 mmol/L (136-145)
[2022-06-07 18:37] LABS: AST(SGOT) 38 U/L (15-37); Alanine Aminotransfer ALT/SGPT 28 U/L (13-56); Albumin, Serum 3.5 g/dL (3.2-5.0); Alkaline Phosphatase 47 U/L (45-117); Bilirubin, Direct 0.06 mg/dL (0.00-0.30); Globulin 4.4 g/dL (2.2-4.2); Lipase 1588 U/L (73-393); Protein, Total 7.9 g/dL (6.4-8.2)
[2022-06-07 18:42] LABS: Color, Urine Yellow (Yellow); Glucose, Dipstick 1000 mg/dl (Normal); Ketone-Dipstick Negative (Negative); Leukocyte Esterase-Dipstick Negative /ul (Negative); Mucous, Urine 0 SEEN /hpf (<or=2+); Nitrite-Dipstick Negative (Negative); Occult Blood-Urine 25 /ul (Negative); Protein-Dipstick 30 mg/dl (Negative); Urine Bilirubin Dipstick Negative (Negative); Urine Clarity Clear (Clear); Urine Urobilinogen Normal (Normal)
[2022-06-07 19:00] VITALS: BP 145/63; PULSE 67; RESP 19; TEMP 36.2; O2SAT 96
[2022-06-07 19:00] LABS: Bacteria 1+ /hpf (None Seen); Red Blood Cells-Urine 0-5 SEEN /hpf (0-5); Squamous Epithelial Cells - UA 0-5 SEEN /hpf (5-10); White Blood Cells 0-5 SEEN /hpf (0-5)
[2022-06-07 21:18] VITALS: BP 160/72; PULSE 89; RESP 18
== END 2022-06-07 21:18 | disposition home or self-care (01) ==
PROVIDERS: Emergency Provider Emergency Medicine; PCP Internal Medicine; Visit Provider Emergency Medicine
DX: K85.80 Other acute pancreatitis without necrosis or infection (principal); Z79.4 Long term (current) use of insulin; F17.210 Nicotine dependence, cigarettes, uncomplicated; F41.9 Anxiety disorder, unspecified; K21.9 Gastro-esophageal reflux disease without esophagitis; E78.00 Pure hypercholesterolemia, unspecified; I10 Essential (primary) hypertension; Z86.16 Personal history of COVID-19; Z79.899 Other long term (current) drug therapy; Z79.84 Long term (current) use of oral hypoglycemic drugs; Z79.01 Long term (current) use of anticoagulants; Z99.81 Dependence on supplemental oxygen
CPT/HCPCS: 74177; 80048; 80076; 81001; 83690; 85025; 93005; 96361; 96374; 99281; J7030; Q9967; A4216; J2405

== ENCOUNTER 2022-08-06 17:20 | Emergency (ER) | payer MEDICARE, MEDICAID, SELFPAY ==
[2022-08-06 17:21] VITALS: BP 175/89; PULSE 84; RESP 18; TEMP 35.8; O2SAT 98; BMI 36.7
== END 2022-08-06 18:00 | disposition left against medical advice (07) ==
LOC: ED 18:23
PROVIDERS: PCP Internal Medicine
DX: Z53.21 Procedure and treatment not carried out due to patient leaving prior to being seen by health care provider (principal)

== ENCOUNTER → 2022-12-08 | Outpatient (CLI) | payer MEDICARE, MEDICAID, SELFPAY ==
[2022-12-08 15:23] LABS: Absolute Lymphocyte Count 2.34 X10^3/uL (0.83-4.51); Absolute Neutrophil Count 6.8 X10^3/uL (2.0-7.7); Basophil# 0.09 X10^3/uL; Basophil% 0.8 % (0-1); Eosinophil# 0.35 X10^3/uL; Eosinophils% 3.3 % (0-5); Hematocrit 36.3 % (37-47); Hemoglobin 10.8 g/dL (12.0-15.0); Lymphocyte # 2.34 X10^3/ul (0.83-4.51); Lymphocyte % 22.1 % (19-41); Mean Corp Hgb Conc 29.8 g/dL (32-36); Mean Corpuscular Hgb 23.1 pg (27.0-32.0); Mean Corpuscular Volume 77.6 fL (81-99); Monocyte# 0.95 X10^3/uL; NRBC Flagged by Analyzer 0 % (0-5); Neutrophil # 6.81 X10^3/uL (2.7-7.7); Neutrophil % 64.1 % (47-70); Platelet Count 363 K/mm3 (150-450); RBC Distribution Width CV 17.4 % (11.6-14.6); RBC Distribution Width SD 48.7 fl (35.1-43.9); Red Blood Count 4.68 M/mm3 (4.2-5.4); White Blood Count 10.6 K/mm3 (4.4-11.0)
[2022-12-08 16:08] LABS: Ferritin 5 ng/mL (8-252); Iron 22 ug/dL (50-170); Iron Binding Capacity,Total 434 ug/dL (250-450); PERCENT IRON SATURATION 5.1 % (15.0-55.0)
== END | disposition home or self-care (01) ==
LOC: LAB 14:46
PROVIDERS: PCP Internal Medicine; Referring Provider Nurse Practitioner Adult Health; Visit Provider Nurse Practitioner Adult Health
DX: R19.7 Diarrhea, unspecified (principal); D64.9 Anemia, unspecified
CPT/HCPCS: 36415; 82728; 83540; 83550; 85025

== ENCOUNTER → 2022-12-24 | Outpatient (CLI) | payer MEDICARE, MEDICAID, SELFPAY | END | disposition home or self-care (01) | LOC: LABSPEC 15:38 | PROVIDERS: PCP Internal Medicine; Visit Provider Nurse Practitioner Adult Health | DX: D64.9 Anemia, unspecified (principal) | CPT/HCPCS: 82274 ==

== ENCOUNTER 2023-01-08 11:34 | Day surgery (SDC) | payer MEDICARE, MEDICAID, SELFPAY ==
--- NOTE | 2023-01-08 | ESO_PTH ---
PATIENT: ASHA QUINTERO LOC: EN U#:[id number] AGE/SX: 67/F ROOM: RE01/08/[address]: Dr. Tj Moe DO : 1955 BED: DIS: 01/08/2023 SPEC #: [id number] RECD: 01/08/23 14:31 STATUS: BRY REQ #: [id number] HANK: 01/08/23 00:[address]: Tj Moe DEPT: SURGICAL PATHOLOGY RECD BY: Yordan Hernandez ENTERED: 01/09/23 10:08 SP TYPE: DAMIR PACHECO DR: Dr. Juliann Otoole DO Tissues: Esophagus, NOS Procedures: Special Stain Group II Surgery Specimen Level IV Alcian Blue/PAS (control) HEADER OPERATION: Colonoscopy with electrohemostasis, EGD (MAC), biopsy PRE-OP DIAGNOSIS: Anemia, collagenous colitis TISSUE SUBMITTED: Distal esophagus biopsy MICROSCOPIC DIAGNOSIS Distal esophagus, biopsy: A fragment of gastroesophageal mucosa with chronic inflammation. Intestinal metaplasia (goblet cell metaplasia) not identified. See comment. CHEMO:leatha 01/12/2023 COMMENT Alcian blue/PAS stain with matched control is used in the evaluation of the specimen. MICROSCOPIC DESCRIPTION Slides are reviewed. GROSS DESCRIPTION Received in fixative is one container labeled with the patient's name and designated distal esophagus biopsy. The specimen consists of one irregular fragment of light ling soft tissue that measures 0.3 x 0.3 x 0.1 cm. The specimen is totally submitted in one cassette. / CHEMO:leatha 01/09/2023 TC:3 CPT: 27606, 87036
[2023-01-08 11:57] VITALS: BP 148/76; PULSE 73; RESP 16; TEMP 36.1; O2SAT 96; BMI 38.7
[2023-01-08] MEDS: Lactated Ringers 1,000 ML 15 ML IV (12:04)
--- NOTE | 2023-01-08 12:16 | PCM.HP.BLA ---
History and Physical Date of Admission: 01/08/23 MERCY QUINTERO, is a 67 F who presents to the office today for 4 months f/u collagenous colitis, hx anemia. Her anemia has recurred; hgb 9.9 in 09/2022 when drawn by naphtha washing system operator; they resumed ferrous sulfate BID (she only remembers to take it once a day). Anemia had been ok for almost a year following treatment of bleeding AVMs in the colon in 10/2021. She is still on Brillinta. She continues to take budesonide 9 mg daily for lymphocytic colitis. Bowels are normal. She does c/o gas and bloating. Diarrhea had flared last yr when she tried to taper off it. She developed pancreatitis when we treated her with lomotil for the diarrhea. Collagenous colitis -- taking budesonide 9 mg (3x3mg) daily. Stools are currently formed. No abdominal pain. No melena or hematochezia.?Negative celiac test. Atypical p-ANCA titer positive -- DDx with elevated atypical p-ANCA includes vasculitis, autoimmune hepatitis, UC, PSC.? No evidence for ulcerative colitis.? Liver enzymes are normal. AMA, ASMA normal. She had an appt with Commercial Kitchen Service Technician Dr Kathy Tyler in [place]; per pt she didn't think pt had a rheum condition--we'll look for progress note. History of iron deficiency anemia ? likely secondary to antiplatelet therapy in the setting of AVM found in GI tract. Taking omeprazole 40 mg BID. Mercy established with this clinic 09.16.21 with referral to address anemia and diarrhea. She currently utilizes Brilinta due to history of CAD s/p PTCA with stent. History of brain aneurysm with clipping, aortic aneurysm measuring 3.2 cm with last imaging. She has a high level of stress including a daughter with scleroderma who she provides care for. Also caring for sister living with her. EGD and colonoscopy performed 10.22.21. EGD found LA Grade A reflux esophagitis. Moderate Schatzki ring. Enlarged gastric folds with chronic gastritis. Erythematous duodenopathy. Colonoscopy found multiple recently bleeding colonic AVMs, treated with ABC. Scattered mild inflammation in descending colon, transverse colon and hepatic flexure secondary to collagenous colitis determined by biopsy. ROS Const Constitutional: Positive for fatigue, headache(s) and weakness ENT ENT: Positive for headache(s) and difficulty swallowing Gastro GI: Positive for bloating and difficulty swallowing; No abdominal pain, belching, change in bowel habits, change in stool character, coffee ground emesis, constipation, cramping, diarrhea, heartburn, feeling full early, excessive flatus, incontinent of stools, Vomiting blood/hematemesis, Blood in stool, loose stools, Black,tarry stools, nausea/dyspepsia, pain with swallowing, vomiting or other Musc Musculoskeletal: Positive for back pain, muscle cramps, numbness, tingling and Arthritis; No joint pain Skin Skin: No yellowing of the eye or itchy eyes Neuro Neurology: Positive for weakness, headache(s), numbness and tingling Psych Psychiatric: No anxiety and No depression Endo Endocrine: Positive for fatigue Aller/Imm Allergy/Immunologic: No itchy eyes Lane/Lymp Hematologic/Lymphatic: Positive for easy bruising; No easy bleeding Exam Const General: cooperative, comfortable and no acute distress Nutritional Appearance: obese Orientation: alert, awake and oriented x3 HENMT Head: normal to inspection Eyes Conjunctivae: conjunctivae normal Sclera: sclerae normal Resp Effort & Inspection: normal respiratory effort GI Inspection: obesity Skin General: ecchymosis (forearms) Neuro Speech: speech normal Gait: normal gait Psych Mood: euthymic mood Quality Reporting Tobacco Screening ([facility] 138) Smoking Status: Current every day smoker Assessment and Plan Assessment and Plan (1) Anemia: ?Status:?Acute ?Plan: Check cbc, iron, ferritin and stool for occult blood Needs EGD for anemia and f/u gastritis, will add colonoscopy if hemoccult positive (2) Collagenous colitis: ?Status:?Chronic ?Plan: She would like to keep budesonide at same dose, 9 mg qam, can discuss taper later ? ? ? Orders: Orders Ferritin Today D64.9 - Anemia, unspecified ? Iron+Iron Binding Capacity Today D64.9 - Anemia, unspecified ? CBC W/Diff, Automated Today D64.9 - Anemia, unspecified, R19.7 - Diarrhea, unspecified ? I have examined the patient and the H&P has been reviewed. There are no clinical changes since date of exam.
[2023-01-08 12:50] VITALS: BP 105/60; BP 148/76; PULSE 65; RESP 16; TEMP 36.1; O2SAT 92
[2023-01-08 12:55] VITALS: BP 109/54; BP 148/76; PULSE 63; RESP 16; O2SAT 96
--- NOTE | 2023-01-08 12:57 | OP.EGD_ITS ---
Patient Name: Mercy Zhang Procedure Date: 01/08/2023 12:19 PM Date of : 1955 Age: 67 Procedure: Upper GI endoscopy Indications: Dysphagia Providers: Tj Moe DO Referring MD: Tj Moe DO Medicines: Monitored Anesthesia Care Patient Profile: This is a 67 year old female. Refer to note in patient chart for documentation of history and physical. Patient has symptoms of acute dysphagia. Complications: No immediate complications. Procedure: Pre-Anesthesia Assessment: - Prior to the procedure, a History and Physical was performed, and patient medications and allergies were reviewed. The patient is competent. The risks and benefits of the procedure and the sedation options and risks were discussed with the patient. All questions were answered and informed consent was obtained. Patient identification and proposed procedure were verified by the physician. Mental Status Examination: normal. Prophylactic Antibiotics: The patient does not require prophylactic antibiotics. Prior Anticoagulants: The patient has taken no previous anticoagulant or antiplatelet agents. After reviewing the risks and benefits, the patient was deemed in satisfactory condition to undergo the procedure. The anesthesia plan was to use monitored anesthesia care (MAC). Immediately prior to administration of medications, the patient was re-assessed for adequacy to receive sedatives. The heart rate, respiratory rate, oxygen saturations, blood pressure, adequacy of pulmonary ventilation, and response to care were monitored throughout the procedure. The physical status of the patient was re-assessed after the procedure. After obtaining informed consent, the endoscope was passed under direct vision. Throughout the procedure, the patient's blood pressure, pulse, and oxygen saturations were monitored continuously. The pediatric colonoscope was introduced through the mouth, and advanced to the second part of duodenum. The upper GI endoscopy was accomplished without difficulty. The patient tolerated the procedure well. Scope In: 12:24:52 PM Scope Out: 12:29:36 PM Total Procedure Duration Time 0 hours 4 minutes 44 seconds Findings: A moderate Schatzki ring was found in the upper third of the esophagus. A guidewire was placed and the scope was withdrawn. Dilation was performed with a Savary dilator with no resistance at 60 Fr. The dilation site was examined and showed moderate improvement in luminal narrowing. Estimated blood loss was minimal. The Z-line was irregular and was found 38 cm from the incisors. Biopsies were taken with a cold forceps for histology. Verification of patient identification for the specimen was done. Estimated blood loss was minimal. Diffuse prominent gastric folds were found in the entire examined stomach. The first portion of the duodenum was normal. Impression: - Moderate Schatzki ring. Dilated. - Z-line irregular, 38 cm from the incisors. Biopsied. - Enlarged gastric folds. - Normal first portion of the duodenum. Recommendation: - Discharge patient to home. - Resume previous diet. - Continue present medications. - Await pathology results. Procedure Code(s): --- Professional --- 90870, Esophagogastroduodenoscopy, flexible, transoral; with insertion of guide wire followed by passage of dilator(s) through esophagus over guide wire 20571, 59, Esophagogastroduodenoscopy, flexible, transoral; with biopsy, single or multiple CPT copyright 2017 [employer]. All rights reserved. The codes documented in this report are preliminary and upon warehouse worker 2nd shift review may be revised to meet current compliance requirements. Tj Moe DO 01/08/2023 12:56:53 PM This report has been signed electronically. Number of Addenda: 0 Note Initiated On: 01/08/2023 12:19 PM
--- NOTE | 2023-01-08 12:57 | OP.CCLET_ITS ---
01/08/2023 Juliann Otoole Do Re : Upper GI endoscopy procedure for Mercy Zhang Dear Sydnie This procedure was performed on December. My impressions and recommendations are as follows: Impressions : - Moderate Schatzki ring. Dilated. - Z-line irregular, 38 cm from the incisors. Biopsied. - Enlarged gastric folds. - Normal first portion of the duodenum. Recommendations : - Discharge patient to home. - Resume previous diet. - Continue present medications. - Await pathology results. My findings are described in the full procedure note, which is enclosed. If I can be of further assistance, please feel free to contact me at . Sincerely, Tj Moe, 01/08/2023 12:56:53 PM This report has been signed electronically.
--- NOTE | 2023-01-08 12:59 | OP.COLON_ITS ---
Patient Name: Mercy Zhang Procedure Date: 01/08/2023 12:29 PM Date of : 1955 Age: 67 Procedure: Colonoscopy Indications: Iron deficiency anemia Providers: Tj Moe DO Referring MD: Tj Moe DO Medicines: Monitored Anesthesia Care Patient Profile: This is a 67 year old female. Refer to note in patient chart for documentation of history and physical. Patient has symptoms of acute dysphagia. Last Colonoscopy: within the past 3 years. Complications: No immediate complications. Procedure: Pre-Anesthesia Assessment: - Prior to the procedure, a History and Physical was performed, and patient medications and allergies were reviewed. The patient is competent. The risks and benefits of the procedure and the sedation options and risks were discussed with the patient. All questions were answered and informed consent was obtained. Patient identification and proposed procedure were verified by the physician. Mental Status Examination: normal. Prophylactic Antibiotics: The patient does not require prophylactic antibiotics. Prior Anticoagulants: The patient has taken no previous anticoagulant or antiplatelet agents. After reviewing the risks and benefits, the patient was deemed in satisfactory condition to undergo the procedure. The anesthesia plan was to use monitored anesthesia care (MAC). Immediately prior to administration of medications, the patient was re-assessed for adequacy to receive sedatives. The heart rate, respiratory rate, oxygen saturations, blood pressure, adequacy of pulmonary ventilation, and response to care were monitored throughout the procedure. The physical status of the patient was re-assessed after the procedure. After I obtained informed consent, the scope was passed under direct vision. Throughout the procedure, the patient's blood pressure, pulse, and oxygen saturations were monitored continuously. The pediatric colonoscope was introduced through the anus and advanced to the cecum, identified by appendiceal orifice and ileocecal valve. The colonoscopy was performed without difficulty. The patient tolerated the procedure well. The quality of the bowel preparation was good. Scope In: 12:31:58 PM Scope Withdrawal Time 0 hours 8 minutes 29 seconds Scope Out: 12:43:40 PM Total Procedure Duration Time 0 hours 11 minutes 42 seconds Findings: The perianal and digital rectal examinations were normal. Small-mouthed diverticula were found in the sigmoid colon. Two medium-sized angiodysplastic lesions with bleeding were found in the sigmoid colon and in the cecum. Coagulation for hemostasis using heater probe was successful. Estimated blood loss: none. The terminal ileum appeared normal. Impression: - Diverticulosis in the sigmoid colon. - Two bleeding colonic angiodysplastic lesions. Treated with a heater probe. - The examined portion of the ileum was normal. - No specimens collected. Recommendation: - Discharge patient to home. - Resume previous diet. - Continue present medications. - Repeat colonoscopy in 5 years for surveillance. Procedure Code(s): --- Professional --- 37999, Colonoscopy, flexible; with control of bleeding, any method CPT copyright 2017 [employer]. All rights reserved. The codes documented in this report are preliminary and upon health information coder review may be revised to meet current compliance requirements. Tj Moe DO 01/08/2023 12:59:38 PM This report has been signed electronically. Number of Addenda: 0 Note Initiated On: 01/08/2023 12:29 PM
[2023-01-08 13:00] VITALS: BP 148/76; BP 93/48; PULSE 68; RESP 16; O2SAT 98
--- NOTE | 2023-01-08 13:00 | OP.CCLET_ITS ---
01/08/2023 Juliann Otoole Do Re : Colonoscopy procedure for Mercy Zhang Dear Sydnie This procedure was performed on December. My impressions and recommendations are as follows: Impressions : - Diverticulosis in the sigmoid colon. - Two bleeding colonic angiodysplastic lesions. Treated with a heater probe. - The examined portion of the ileum was normal. - No specimens collected. Recommendations : - Discharge patient to home. - Resume previous diet. - Continue present medications. - Repeat colonoscopy in 5 years for surveillance. My findings are described in the full procedure note, which is enclosed. If I can be of further assistance, please feel free to contact me at . Sincerely, Tj Moe, 01/08/2023 12:59:38 PM This report has been signed electronically.
[2023-01-08 13:05] VITALS: BP 148/76; BP 98/56; PULSE 65; RESP 18; TEMP 36.4; O2SAT 95
[2023-01-08 13:37] VITALS: BP 148/76
[2023-01-08 13:55] LABS: Bedside Glucose 178 mg/dL (74-106)
== END 2023-01-08 13:49 | disposition home or self-care (01) ==
LOC: EN 11:35 → AC 11:35
PROVIDERS: PCP Internal Medicine; Referring Provider Internal Medicine; Visit Provider Internal Medicine Gastroenterology
PROC: 0DJD8ZZ Inspection of Lower Intestinal Tract, Via Natural or Artificial Opening Endoscopic (ICD-10-PCS; CPT 45378; principal; 2023-01-08 12:10)
DX: K57.30 Diverticulosis of large intestine without perforation or abscess without bleeding (principal); J44.9 Chronic obstructive pulmonary disease, unspecified; Z79.4 Long term (current) use of insulin; D50.9 Iron deficiency anemia, unspecified; K21.00 Gastro-esophageal reflux disease with esophagitis, without bleeding; K22.2 Esophageal obstruction; F17.200 Nicotine dependence, unspecified, uncomplicated; E66.9 Obesity, unspecified; I10 Essential (primary) hypertension; Z86.16 Personal history of COVID-19; Z99.81 Dependence on supplemental oxygen; Z95.5 Presence of coronary angioplasty implant and graft; Z79.84 Long term (current) use of oral hypoglycemic drugs; Z79.899 Other long term (current) drug therapy; Z68.38 Body mass index [BMI] 38.0-38.9, adult
CPT/HCPCS: 43239; 43248; 45382; 82962; 88305; 88313; J7120; C1769; J2405

== ENCOUNTER 2023-03-21 15:57 | Emergency (ER) | payer MEDICARE, SELFPAY ==
[2023-03-21 15:57] VITALS: BP 179/87; PULSE 70; RESP 16; TEMP 36.4; O2SAT 96; BMI 39.0
--- NOTE | 2023-03-21 16:31 | CT_ITS ---
STUDY: CT Abdomen And Pelvis W/O Contrast Injection 03/21/2023 5:21 PM REASON FOR EXAM: Female, 67 years old. Abdominal pain epigastric pain, hx pancreatitis Individualized dose optimization techniques were used for this CT. COMPARISON: 06.07.22. TECHNIQUE: CT Abdomen And Pelvis W/O Contrast Injection IV FINDINGS: There are atherosclerotic calcifications of visualized coronary arteries. The visualized portions of the heart are within normal limits. Normal liver. Normal gallbladder and extrahepatic biliary system. There is a benign calcified granuloma of the spleen. There is diffuse enlargement of the pancreas with adrianna-pancreatic edema suggesting acute pancreatitis. Normal bilateral adrenal glands. There is moderate cortical atrophy of the right kidney, consistent with chronic medical renal disease. There are hypodensities in the left kidney. These are consistent for cysts. No follow up required. Normal visualized stomach. Normal small intestine. Stool throughout the colon. The appendix is visualized and appears normal. There are calcifications of the abdominal aorta. This is consistent for atherosclerotic disease. There is 36mm abdominal aortic aneurysm. Vascular workup can be obtained based on clinical correlation. Normal inferior vena cava. Subcentimeter mesenteric lymph nodes. Normal urinary bladder. There is atrophy of the uterus. Right intramuscular cyst of the right anterior thigh muscle is unchanged. There is a large ventral hernia containing fat. There are diffuse degenerative changes of the visualized lumbar spine. There is bilateral neural foraminal stenosis at L4-5 and L5-S1. CT/Abdomen/Pelvis without Cont IMPRESSION: (NOT LISTED IN ORDER OF SIGNIFICANCE) Gastritis. There is acute pancreatitis. 36mm abdominal aortic aneurysm. Other findings as above. Electronically Signed: Jose M Cardozo MD at 17:26 EDT ,
[2023-03-21] MEDS: Ondansetron 4 MG/2 ML Vial IV (16:38)
--- NOTE | 2023-03-21 16:39 | EDS_ITS ---
HPI <WILDER Gray - Last Filed: 03/21/23 18:29> History of Present Illness Chief Complaint: Abd Pain Narrative Narrative: Patient presenting today with epigastric abdominal pain that she has had for close to a week. She reports that it has worsened over the past 3 days, is sharp, and radiates across her upper abdomen and around to her back. She reports a history of pancreatitis that was caused by a medication that she was on that is now discontinued and thinks that this feels similar. She reports having intermittent loose stools for the past few days that does seem to be improving. She is nauseous but has not had any vomiting. She is still eating and drinking normally but reports food seems to make it worse. Patient also has a history of gastritis and takes omeprazole daily. History of AAA that is regularly followed. She reports it does not need surgery at this time. PFSH <WILDER Gray - Last Filed: 03/21/23 18:29> COUNTS INCLUDE 234 BEDS AT THE [facility] Medical History Abdominal aortic aneurysm Anemia Anemia Anxiety Arteriosclerosis Arthritis Back pain Cardiology follow-up encounter Chronic cough COPD (chronic obstructive pulmonary disease) COVID Depression Diarrhea Dysphagia Easy bruising Excessive bleeding Family history of brain aneurysm Gastric reflux Heme positive stool High cholesterol History of echocardiogram History of edema History of heart attack History of kidney disease History of pain when walking History of stent insertion of renal artery History of stress test Hypertension Injury of head and neck Insulin dependent diabetes mellitus Leg cramps On home oxygen therapy P-ANCA titer positive Post-menopausal Smoker Wears glasses Home Medications cyclobenzaprine 10 mg tablet 10 mg PO QHS PRN Sleep 10/17/21 [History Last Taken Unknown] duloxetine 30 mg capsule,delayed release 30 mg PO DAILY ANXIETY 10/17/21 [History Last Taken Unknown] empagliflozin 25 mg tablet (Jardiance) 25 mg PO .AFTERNOON 10/17/21 [History Last Taken Unknown] ferrous sulfate 325 mg (65 mg iron) tablet (FeroSul) 325 mg PO BID SUPPLEMENT 10/17/21 [History Last Taken Unknown] gabapentin 300 mg tablet 300 mg PO DAILY 10/17/21 [History Last Taken Unknown] gabapentin 600 mg tablet 600 mg PO QHS 10/17/21 [History Last Taken Unknown] glipizide 10 mg tablet 10 mg PO QHS 10/17/21 [History Last Taken Unknown] hydrochlorothiazide 25 mg tablet 25 mg PO DAILY 10/17/21 [History Last Taken Unknown] insulin glargine U-300 conc 300 unit/mL (1.5 mL) subcutaneous pen (Wilmer Herreraar U-300 Insulin) 28 unit subcut DAILY 10/17/21 [History Last Taken Unknown] metformin 500 mg tablet 1,000 mg PO BID 10/17/21 [History Last Taken Unknown] metoprolol succinate 100 mg tablet,extended release 24 hr 100 mg PO BID 10/17/21 [History Last Taken 10/22/21 11:00] omeprazole 40 mg capsule,delayed release 40 mg PO BID 10/17/21 [History Last Taken 10/22/21 11:00] rosuvastatin 40 mg tablet 40 mg PO QHS 10/17/21 [History Last Taken Unknown] spironolactone 50 mg tablet 50 mg PO DAILY 10/17/21 [History Last Taken Unknown] ticagrelor 90 mg tablet (Brilinta) 90 mg PO BID BLOOD THINNER 10/17/21 [History Last Taken Unknown] valsartan 160 mg tablet 160 mg PO BID 10/17/21 [History Last Taken 10/22/21 11:00] budesonide 3 mg capsule,delayed,extended release 9 mg PO DAILY #270 ea 01/07/23 [Rx Last Taken Unknown] oxycodone-acetaminophen 5 mg-325 mg tablet (Percocet) 1 tab PO Q8H PRN pain 5 days #15 tabs 03/21/23 [Rx Last Taken Unknown] Allergy/AdvReac Type Severity Reaction Status Date / Time bupropion [From Wellbutrin] Allergy Hives Verified 03/21/23 15:59 clopidogrel [From Plavix] Allergy Rash Verified 03/21/23 15:59 atropine [From Lomotil] AdvReac pancreatiti Verified 03/21/23 15:59 s codeine AdvReac Nausea/Vom/ Verified 03/21/23 15:59 Diarrhea diphenoxylate [From Lomotil] AdvReac pancreatiti Verified 03/21/23 15:59 s Surgical History History of bilateral oophorectomies History of History of cardiac catheterization History of carpal tunnel surgery History of coronary artery stent placement History of inguinal hernia repair History of neck surgery History of oophorectomy History of rotator cuff surgery History of umbilical hernia repair Social History Smoking Status: Current every day smoker tobacco type: cigarettes ROS <WILDER Gray - Last Filed: 03/21/23 18:29> ROS ED Constitutional Constitutional ED: Denies chills or fever(s) Cardiovascular Cardiovascular: Denies chest pain Respiratory/Chest Respiratory/Chest: Denies cough or dyspnea Gastrointestinal Gastrointestinal: Reports abdominal pain and nausea; Denies diarrhea or vomiting Genitourinary Genitourinary ED: Denies dysuria, hematuria or urinary urgency Musculoskeletal Musculoskeletal: Denies arthralgias or myalgias Integumentary Denies abscess, Abrasions or rash Neurologic Neurologic: Denies weakness Psychiatric Psychiatric: Denies anxiety or depression EXAM <WILDER Gray - Last Filed: 03/21/23 18:29> Physical Exam Const Vital Signs: 03/21/23 15:57 Temperature 97.6 F L Temperature Source Temporal Pulse Rate 70 Respiratory Rate 16 Blood Pressure 179/87 H Blood Pressure Mean 117 Pulse Ox 96 Oxygen Delivery Method Room Air Positive well nourished, well developed and no apparent distress General Appearance ED: well developed HEENT Reports normocephalic and head/scalp atraumatic Mouth ED: Yes moist mucous membranes normal Eyes PERRL and EOMs intact bilaterally Neck full ROM and supple Chest Wall inspection of chest normal Resp normal respiratory effort and clear to auscultation bilaterally Cardio regular rate and regular rhythm GI soft to palpation, non-distended and no masses GI Narrative: Epigastric tenderness to palpation. No rigidity or guarding. Palpation: Negative for rebound tenderness present Back/Spine normal ROM and normal to inspection Extremity normal to inspection and full ROM Neuro oriented x3, CN's II-XII intact bilaterally, moves all extremities, no focal motor deficits and no sensory deficits noted Sensorium / Orientation: awake and alert Psych mental status grossly normal and thought process normal Skin no rashes or lesions noted and no wounds <Dr. Zackary Bernstein MD - Last Filed: 03/21/23 17:44> Physical Exam Const Vital Signs: 03/21/23 15:57 Temperature 97.6 F L Temperature Source Temporal Pulse Rate 70 Respiratory Rate 16 Blood Pressure 179/87 H Blood Pressure Mean 117 Pulse Ox 96 Oxygen Delivery Method Room Air [facility] <WILDER Gray - Last Filed: 03/21/23 18:29> [facility] Narrative Medical decision making narrative: Patient presenting today due to epigastric abdominal pain that she has had now for several days. History of pancreatitis and thinks that this feels similar. She has had some intermittent nausea without any vomiting. Intermittent loose stools throughout the week but she does not consider it to be diarrhea. She is well-appearing and in no acute distress, vitals are unremarkable aside from elevated blood pressure. She has been given Zofran. Labs to be obtained to rule out leukocytosis, anemia, electrolyte abnormality, and to check lipase. CT scan did not rule out pancreatitis, SBO, diverticulitis, and other acute findings. Slightly elevated WBC, lipase WNL. However, CT scan shows acute pancreatitis. She will be given pain control for home. She wants to be discharged home and does not want to be admitted to the hospital. She has been given dietary instructions and return instructions and will be discharged home in stable condition. She is comfortable with plan. I have personally performed a face to face assessment of the patient and have reviewed the CECILIO Note. I performed a substantive portion of the visit including all aspects of the following. My mccain findings include: History is 67-year-old female history of prior pancreatitis and gastritis. Presents with several day history of epigastric abdominal pain radiating to her back. No fever or chills. No diarrhea or melena. No chest pain or shortness of breath. Exam is 6 Female no acute distress vital signs stable afebrile. H EENT exam unremarkable. Lungs clear. Heart regular rhythm no murmur. Chest wall nontender. Abdomen soft nondistended normal bowel sounds no peritoneal signs. Mild epigastric tenderness. No Carreon sign or McBurney's point tenderness. No obstruction. Moves all 4 extremities. Calves are nontender edema. Neurologically she is awake alert.] Medical Decison Making [62-year-old female with epigastric abdominal pain that may be pancreatitis versus gastritis versus gallbladder disease versus other etiologies. CAT scan labs are pending.] Other additions or changes: [Labs are unremarkable. Her lipase is only 95. Previous when she had taken it was all most 1,600. Discussed with patient she would prefer to be treated at home. CAT scan shows what is possible pancreatitis. This could also be from gastritis. She is already on stomach medication at home. She will be written for limited Percocet for pain. [place] diet increase slowly as tolerated. Return if worse.] Lab Data Attestation: I reviewed the patient's lab results. Lab results narrative: To be 11.3, sodium 135, BUN 21, creatinine 1.13, UA unremarkable Labs: Laboratory Results - last 24 hr 03/21/23 03/21/23 03/21/23 16:35 16:35 16:35 WBC 11.3 H RBC 5.08 Hgb 14.0 Hct 43.3 MCV 85.2 MCH 27.6 MCHC 32.3 RDW Std Deviation 54.0 H RDW Coeff of Dick 17.2 H Plt Count 264 MPV 10.5 Immature Gran % (Auto) 0.400 Neut % (Auto) 77.8 H Lymph % (Auto) 12.4 L Mchenry % (Auto) 7.0 Eos % (Auto) 2.0 Baso % (Auto) 0.4 Absolute Neuts (auto) 8.7 H Absolute Lymphs (auto) 1.40 Nucleated RBC % 0 Sodium 135 L Potassium 4.1 Chloride 102 Carbon Dioxide 26.0 Anion Gap 7 BUN 21 H Creatinine 1.13 H Estim Creat Clear Calc 42.86 Est GFR (MDRD) Af Amer 62 Est GFR (MDRD) Non-Af 51 L BUN/Creatinine Ratio 18.6 Glucose 150 H Calcium 9.6 Total Bilirubin 0.30 AST 17 ALT 28 Alkaline Phosphatase 45 Total Protein 8.1 Albumin 3.7 Globulin 4.4 H Albumin/Globulin Ratio 0.8 L Amylase 41 Lipase 95 H Urine Color Urine Clarity Urine pH Ur Specific [place] Urine Protein Urine Glucose (UA) Urine Ketones Urine Occult Blood Urine Nitrite Urine Bilirubin Urine Urobilinogen Ur Leukocyte Esterase Urine RBC Urine WBC Ur Squamous Epith Cells Urine Bacteria Urine Mucus 03/21/23 16:45 WBC RBC Hgb Hct MCV MCH MCHC RDW Std Deviation RDW Coeff of Dick Plt Count MPV Immature Gran % (Auto) Neut % (Auto) Lymph % (Auto) Mchenry % (Auto) Eos % (Auto) Baso % (Auto) Absolute Neuts (auto) Absolute Lymphs (auto) Nucleated RBC % Sodium Potassium Chloride Carbon Dioxide Anion Gap BUN Creatinine Estim Creat Clear Calc Est GFR (MDRD) Af Amer Est GFR (MDRD) Non-Af BUN/Creatinine Ratio Glucose Calcium Total Bilirubin AST ALT Alkaline Phosphatase Total Protein Albumin Globulin Albumin/Globulin Ratio Amylase Lipase Urine Color Yellow Urine Clarity Clear Urine pH 6.5 Ur Specific [place] 1.010 Urine Protein 30 H Urine Glucose (UA) 1000 H Urine Ketones Negative Urine Occult Blood 10 H Urine Nitrite Negative Urine Bilirubin Negative Urine Urobilinogen Normal Ur Leukocyte Esterase Negative Urine RBC 0 SEEN Urine WBC 0 SEEN Ur Squamous Epith Cells 0 SEEN Urine Bacteria 0 SEEN Urine Mucus 0 SEEN Radiography Diagnostic Testing: Clinical Impression(s) from Imaging Studies Abdomen/Pelvis CT 03/21/23 16:31 IMPRESSION: (NOT LISTED IN ORDER OF SIGNIFICANCE) Gastritis. There is acute pancreatitis. 36mm abdominal aortic aneurysm. Other findings as above. Electronically Signed: Jose M Cardozo MD at 17:26 EDT Reading Location ID and State: [facility] / [place] , Service support , <Dr. Zackary Bernstein MD - Last Filed: 03/21/23 17:44> MDM MDM Narrative Medical decision making narrative: I have personally performed a face to face assessment of the patient and have reviewed the CECILIO Note. I performed a substantive portion of the visit including all aspects of the following. My mccain findings include: History is 67-year-old female history of prior pancreatitis and gastritis. Presents with several day history of epigastric abdominal pain radiating to her back. No fever or chills. No diarrhea or melena. No chest pain or shortness of breath. Exam is 6 Female no acute distress vital signs stable afebrile. H EENT exam unremarkable. Lungs clear. Heart regular rhythm no murmur. Chest wall nontender. Abdomen soft nondistended normal bowel sounds no peritoneal signs. Mild epigastric tenderness. No Carreon sign or McBurney's point tenderness. No obstruction. Moves all 4 extremities. Calves are nontender edema. Neurologically she is awake alert.] Medical Decison Making [62-year-old female with epigastric abdominal pain that may be pancreatitis versus gastritis versus gallbladder disease versus other etiologies. CAT scan labs are pending.] Other additions or changes: [Labs are unremarkable. Her lipase is only 95. Previous when she had taken it was all most 1,600. Discussed with patient she would prefer to be treated at home. CAT scan shows what is possible pancreatitis. This could also be from gastritis. She is already on stomach medication at home. She will be written for limited Percocet for pain. [place] diet increase slowly as tolerated. Return if worse.] Lab Data Labs: Laboratory Results - last 24 hr 03/21/23 03/21/23 03/21/23 16:35 16:35 16:35 WBC 11.3 H RBC 5.08 Hgb 14.0 Hct 43.3 MCV 85.2 MCH 27.6 MCHC 32.3 RDW Std Deviation 54.0 H RDW Coeff of Dick 17.2 H Plt Count 264 MPV 10.5 Immature Gran % (Auto) 0.400 Neut % (Auto) 77.8 H Lymph % (Auto) 12.4 L Mchenry % (Auto) 7.0 Eos % (Auto) 2.0 Baso % (Auto) 0.4 Absolute Neuts (auto) 8.7 H Absolute Lymphs (auto) 1.40 Nucleated RBC % 0 Sodium 135 L Potassium 4.1 Chloride 102 Carbon Dioxide 26.0 Anion Gap 7 BUN 21 H Creatinine 1.13 H Estim Creat Clear Calc 42.86 Est GFR (MDRD) Af Amer 62 Est GFR (MDRD) Non-Af 51 L BUN/Creatinine Ratio 18.6 Glucose 150 H Calcium 9.6 Total Bilirubin 0.30 AST 17 ALT 28 Alkaline Phosphatase 45 Total Protein 8.1 Albumin 3.7 Globulin 4.4 H Albumin/Globulin Ratio 0.8 L Amylase 41 Lipase 95 H Urine Color Urine Clarity Urine pH Ur Specific [place] Urine Protein Urine Glucose (UA) Urine Ketones Urine Occult Blood Urine Nitrite Urine Bilirubin Urine Urobilinogen Ur Leukocyte Esterase Urine RBC Urine WBC Ur Squamous Epith Cells Urine Bacteria Urine Mucus 03/21/23 16:45 WBC RBC Hgb Hct MCV MCH MCHC RDW Std Deviation RDW Coeff of Dick Plt Count MPV Immature Gran % (Auto) Neut % (Auto) Lymph % (Auto) Mchenry % (Auto) Eos % (Auto) Baso % (Auto) Absolute Neuts (auto) Absolute Lymphs (auto) Nucleated RBC % Sodium Potassium Chloride Carbon Dioxide Anion Gap BUN Creatinine Estim Creat Clear Calc Est GFR (MDRD) Af Amer Est GFR (MDRD) Non-Af BUN/Creatinine Ratio Glucose Calcium Total Bilirubin AST ALT Alkaline Phosphatase Total Protein Albumin Globulin Albumin/Globulin Ratio Amylase Lipase Urine Color Yellow Urine Clarity Clear Urine pH 6.5 Ur Specific [place] 1.010 Urine Protein 30 H Urine Glucose (UA) 1000 H Urine Ketones Negative Urine Occult Blood 10 H Urine Nitrite Negative Urine Bilirubin Negative Urine Urobilinogen Normal Ur Leukocyte Esterase Negative Urine RBC 0 SEEN Urine WBC 0 SEEN Ur Squamous Epith Cells 0 SEEN Urine Bacteria 0 SEEN Urine Mucus 0 SEEN Radiography Diagnostic Testing: Clinical Impression(s) from Imaging Studies Abdomen/Pelvis CT 03/21/23 16:31 IMPRESSION: (NOT LISTED IN ORDER OF SIGNIFICANCE) Gastritis. There is acute pancreatitis. 36mm abdominal aortic aneurysm. Other findings as above. Electronically Signed: Jose M Cardozo MD at 17:26 EDT Reading Location ID and State: [facility] / [place] , Service support , Discharge Plan Triage Chief Complaint: Abd Pain ED Midlevel Provider: Ladonna Mejias ED Provider: Zackary Bernstein Dx/Rx/DC Orders Clinical Impression: Acute pancreatitis, Gastritis Instructions: ED Pancreatitis Prescriptions: New oxycodone-acetaminophen [Percocet] 5-325 mg tablet 1 tab PO Q8H PRN (Reason: pain) 5 Days Qty: 15 0RF No Action cyclobenzaprine 10 mg tablet 10 mg PO QHS PRN (Reason: Sleep) metformin 500 mg tablet 1,000 mg PO BID Label Comments: take 2 tablets by mouth twice a day gabapentin 600 mg tablet 600 mg PO QHS glipizide 10 mg tablet 10 mg PO QHS metoprolol succinate 100 mg tablet extended release 24 hr 100 mg PO BID Label Comments: take 1 tablet by mouth twice a day omeprazole 40 mg capsule,delayed release(DR/EC) 40 mg PO BID ferrous sulfate [FeroSul] 325 mg (65 mg iron) tablet 325 mg PO BID Rx Instructions: WILL STOP 10/19 FOR egd, COLONOSCOPY 10/22 hydrochlorothiazide 25 mg tablet 25 mg PO DAILY spironolactone 50 mg tablet 50 mg PO DAILY valsartan 160 mg tablet 160 mg PO BID Label Comments: take 1 tablet by mouth twice a day rosuvastatin 40 mg tablet 40 mg PO QHS duloxetine 30 mg capsule,delayed release(DR/EC) 30 mg PO DAILY gabapentin 300 mg Tablet 300 mg PO DAILY Brilinta 90 mg tablet 90 mg PO BID Rx Instructions: WILL STOP 10/19 FOR egd, COLONOSCOPY 10/22 Jardiance 25 mg tablet 25 mg PO .AFTERNOON Toujeo SoloStar U-300 Insulin 300 unit/mL (1.5 mL) insulin pen 28 unit SUBCUT DAILY budesonide 3 mg capsule,delayed,extend.release 9 mg PO DAILY Qty: 270 1RF Rx Instructions: take three capsules to equal 9mg once a day. Primary Care Provider: Juliann Otoole Referrals: Juliann Otoole, [Primary Care Provider] - 3-5 Days Activity Restrictions/Additional Instructions: Please follow-up with your PCP and return for any worsening of symptoms. Please stick to a bland diet in small amounts for the next few days. Disposition Disposition: Home, Self Care Discharge Date/Time: 03/21/23 17:53
[2023-03-21 16:51] LABS: Bacteria 0 SEEN /hpf (None Seen); Mucous, Urine 0 SEEN /hpf (<or=2+); Red Blood Cells-Urine 0 SEEN /hpf (0-5); Squamous Epithelial Cells - UA 0 SEEN /hpf (5-10); White Blood Cells 0 SEEN /hpf (0-5)
[2023-03-21 16:52] LABS: Color, Urine Yellow (Yellow); Glucose, Dipstick 1000 mg/dl (Normal); Ketone-Dipstick Negative (Negative); Leukocyte Esterase-Dipstick Negative /ul (Negative); Nitrite-Dipstick Negative (Negative); Occult Blood-Urine 10 /ul (Negative); Protein-Dipstick 30 mg/dl (Negative); Urine Bilirubin Dipstick Negative (Negative); Urine Clarity Clear (Clear); Urine Urobilinogen Normal (Normal); Urine pH 6.5 (5.0 - 8.0)
[2023-03-21 16:56] LABS: Absolute Neutrophil Count 8.7 X10^3/uL (2.0-7.7); Basophil# 0.05 X10^3/uL; Basophil% 0.4 % (0-1); Eosinophil# 0.23 X10^3/uL; Hematocrit 43.3 % (37-47); Lymphocyte % 12.4 % (19-41); Mean Corp Hgb Conc 32.3 g/dL (32-36); Mean Corpuscular Hgb 27.6 pg (27.0-32.0); Mean Corpuscular Volume 85.2 fL (81-99); Mean Platelet Vol. 10.5 fl (6.2-12.0); Monocyte# 0.79 X10^3/uL; NRBC Flagged by Analyzer 0 % (0-5); Neutrophil # 8.74 X10^3/uL (2.7-7.7); Neutrophil % 77.8 % (47-70); Platelet Count 264 K/mm3 (150-450); RBC Distribution Width CV 17.2 % (11.6-14.6); Red Blood Count 5.08 M/mm3 (4.2-5.4); White Blood Count 11.3 K/mm3 (4.4-11.0)
[2023-03-21 16:57] LABS: ALB/GLOB Ratio 0.8 RATIO (0.9-2.4); AST(SGOT) 17 U/L (15-37); Alanine Aminotransfer ALT/SGPT 28 U/L (13-56); Albumin, Serum 3.7 g/dL (3.2-5.0); Alkaline Phosphatase 45 U/L (45-117); Anion Gap 7 (5-15); BUN 21 mg/dL (7-18); BUN/Creat Ratio 18.6 RATIO (10-20); Calcium,Total 9.6 mg/dL (8.5-10.1); Chloride 102 mmol/L (98-107); Creatinine, Serum 1.13 mg/dL (0.55-1.02); EST Glomerular Filtration Rate 51 mL/min (>60); Est Glom Filt Rate - Afr Amer 62 mL/min (>60); Estimated Creatinine Clearance 42.86 ml/min; Globulin 4.4 g/dL (2.2-4.2); Glucose 150 mg/dL (74-106); Lipase 95 U/L (13-75); Potassium 4.1 mmol/L (3.5-5.1); Protein, Total 8.1 g/dL (6.4-8.2); Sodium Level 135 mmol/L (136-145)
[2023-03-21 17:49] LABS: Amylase 41 U/L (25-115)
== END 2023-03-21 17:53 | disposition home or self-care (01) ==
PROVIDERS: Physician Assistant; Emergency Provider Emergency Medicine; PCP Internal Medicine; Visit Provider Emergency Medicine
DX: K85.90 Acute pancreatitis without necrosis or infection, unspecified (principal); Z79.4 Long term (current) use of insulin; K29.70 Gastritis, unspecified, without bleeding; F17.210 Nicotine dependence, cigarettes, uncomplicated; I10 Essential (primary) hypertension; K21.9 Gastro-esophageal reflux disease without esophagitis; I25.2 Old myocardial infarction; F41.9 Anxiety disorder, unspecified; F32.A Depression, unspecified; Z86.16 Personal history of COVID-19; Z99.81 Dependence on supplemental oxygen; Z95.5 Presence of coronary angioplasty implant and graft; Z79.899 Other long term (current) drug therapy; Z79.84 Long term (current) use of oral hypoglycemic drugs
CPT/HCPCS: 74176; 80053; 81001; 82150; 83690; 85025; 96374; 99282; A4216; J2405

== ENCOUNTER 2023-03-26 13:57 | Emergency (ER) | payer MEDICARE, SELFPAY ==
[2023-03-26 13:58] VITALS: BP 182/80; PULSE 72; RESP 18; TEMP 36.1; O2SAT 98
[2023-03-26 14:20] VITALS: BMI 39.0
--- NOTE | 2023-03-26 14:21 | ED.VIS.GI ---
HPI HPI - GI History of Present Illness Chief Complaint: Abd Pain Informant: patient Abdominal Pain/Flank Pain Onset: Days (8 days ago) Context: Sudden Onset Timing: Continuous and Waxes and wanes Quality: Aching and Burning Location: Epigastric and LUQ Current Severity: Mild Maximum Severity: Moderate Worsened by: Food Relieved by: Nothing Nausea/Vomiting/Emesis GI Symptom: Positive for Nausea; Negative for Vomiting Onset: Days Diarrhea/Melena/Hematochezia GI Symptom: Negative for Diarrhea, Melena or Hematochezia Associated Symptoms Associated Symptoms: Negative for Dysuria, Frequency, Hematuria or Urgency Narrative Narrative: Patient is a 67-year-old woman with history of pancreatitis, gastritis, reflux, anemia who was seen on Thursday and diagnosed with acute pancreatitis. Amylase was normal. Lipase patient was slightly elevated 95. There is also evidence of gastritis on the CAT scan. Patient has seen Dr. Moe who recommended EGD and possible colonoscopy for anemia. Patient localized the pain epigastric left upper quadrant. The pain does not radiate through to her back. There is no associated weight loss or weight gain. She denies night sweats, fever or chills. She denies black or maroon-colored stool. She denies cardiac symptoms. She denies respiratory symptoms. She denies logic symptom she presently is taking half of an oxycodone tablet instead of full. She states she has been compliant with her omeprazole. She states on Thursday she was told she had an abdominal aortic aneurysm. The aneurysm measured 3.6 cm. She denies low back pain. Prior similar symptoms: Yes Recent Illness/Hospitalization: Yes PFSH [facility] Medical History Abdominal aortic aneurysm Anemia Anemia Anxiety Arteriosclerosis Arthritis Back pain Cardiology follow-up encounter Chronic cough COPD (chronic obstructive pulmonary disease) COVID Depression Diarrhea Dysphagia Easy bruising Excessive bleeding Family history of brain aneurysm Gastric reflux Heme positive stool High cholesterol History of echocardiogram History of edema History of heart attack History of kidney disease History of pain when walking History of stent insertion of renal artery History of stress test Hypertension Injury of head and neck Insulin dependent diabetes mellitus Leg cramps On home oxygen therapy P-ANCA titer positive Pancreatitis Post-menopausal Smoker Wears glasses Home Medications cyclobenzaprine 10 mg tablet 10 mg PO QHS PRN Sleep 10/17/21 [History Last Taken Unknown] duloxetine 30 mg capsule,delayed release 30 mg PO DAILY ANXIETY 10/17/21 [History Last Taken Unknown] empagliflozin 25 mg tablet (Jardiance) 25 mg PO .AFTERNOON 10/17/21 [History Last Taken Unknown] ferrous sulfate 325 mg (65 mg iron) tablet (FeroSul) 325 mg PO BID SUPPLEMENT 10/17/21 [History Last Taken Unknown] gabapentin 300 mg tablet 300 mg PO DAILY 10/17/21 [History Last Taken Unknown] gabapentin 600 mg tablet 600 mg PO QHS 10/17/21 [History Last Taken Unknown] glipizide 10 mg tablet 10 mg PO QHS 10/17/21 [History Last Taken Unknown] hydrochlorothiazide 25 mg tablet 25 mg PO DAILY 10/17/21 [History Last Taken Unknown] insulin glargine U-300 conc 300 unit/mL (1.5 mL) subcutaneous pen (TouJud[employer] Booko SoloStar U-300 Insulin) 28 unit subcut DAILY 10/17/21 [History Last Taken Unknown] metformin 500 mg tablet 1,000 mg PO BID 10/17/21 [History Last Taken Unknown] metoprolol succinate 100 mg tablet,extended release 24 hr 100 mg PO BID 10/17/21 [History Last Taken 10/22/21 11:00] omeprazole 40 mg capsule,delayed release 40 mg PO BID 10/17/21 [History Last Taken 10/22/21 11:00] rosuvastatin 40 mg tablet 40 mg PO QHS 10/17/21 [History Last Taken Unknown] spironolactone 50 mg tablet 50 mg PO DAILY 10/17/21 [History Last Taken Unknown] ticagrelor 90 mg tablet (Brilinta) 90 mg PO BID BLOOD THINNER 10/17/21 [History Last Taken Unknown] valsartan 160 mg tablet 160 mg PO BID 10/17/21 [History Last Taken 10/22/21 11:00] budesonide 3 mg capsule,delayed,extended release 9 mg PO DAILY #270 ea 01/07/23 [Rx Last Taken Unknown] oxycodone-acetaminophen 5 mg-325 mg tablet (Percocet) 1 tab PO Q8H PRN pain 5 days #15 tabs 03/21/23 [Rx Last Taken Unknown] oxycodone-acetaminophen 5 mg-325 mg tablet 1 tab PO Q6H PRN PRN pain 5 days #20 TABLETS 03/26/23 [Rx Last Taken Unknown] sucralfate 1 gram tablet (Carafate) 1 g PO .QID #120 tabs 03/26/23 [Rx Last Taken Unknown] Allergy/AdvReac Type Severity Reaction Status Date / Time bupropion [From Wellbutrin] Allergy Hives Verified 03/21/23 15:59 clopidogrel [From Plavix] Allergy Rash Verified 03/21/23 15:59 atropine [From Lomotil] AdvReac pancreatiti Verified 03/21/23 15:59 s codeine AdvReac Nausea/Vom/ Verified 03/21/23 15:59 Diarrhea diphenoxylate [From Lomotil] AdvReac pancreatiti Verified 03/21/23 15:59 s Surgical History History of bilateral oophorectomies History of History of cardiac catheterization History of carpal tunnel surgery History of coronary artery stent placement History of inguinal hernia repair History of neck surgery History of oophorectomy History of rotator cuff surgery History of umbilical hernia repair Social History (Updated 03/26/23 @ 14:[address] Travis Ventura MD) household members: none Smoking Status: Current every day smoker tobacco type: cigarettes substance use type: does not use ROS ROS ED Constitutional Constitutional ED: Denies chills, fever(s), subjective, sweats or weight loss ENT ENT ED: Denies ear pain, rhinorrhea or sore throat Cardiovascular Cardiovascular: Denies chest pain, orthopnea, palpitations, paroxysmal nocturnal dyspnea or racing heartbeat Respiratory/Chest Respiratory/Chest: Denies cough, dyspnea, dyspnea on exertion, orthopnea or paroxysmal nocturnal dyspnea Gastrointestinal Gastrointestinal: Reports abdominal pain and nausea; Denies constipation, diarrhea, melena or vomiting Genitourinary Genitourinary ED: Denies dysuria, hematuria or urinary frequency Musculoskeletal Musculoskeletal: Denies arthralgias, back pain, myalgias or neck pain Integumentary Denies rash Neurologic Neurologic: Denies headache(s), paresthesias or weakness Psychiatric Psychiatric: Denies anxiety or depression Endocrine Endocrinology: Denies polydipsia or polyuria EXAM Physical Exam Const Vital Signs: 03/26/23 13:58 Temperature 97.0 F L Temperature Source Temporal Pulse Rate 72 Respiratory Rate 18 Blood Pressure 182/80 H Blood Pressure Mean 114 Pulse Ox 98 Oxygen Delivery Method Room Air Positive well nourished, well developed and obese General Appearance ED: well developed and NAD Nutritional Appearance: obese HEENT Reports TM's clear and moist mucous membranes HEENT Narrative: Ears are normal. Nares are patent. There is no discharge. Posterior pharynx is normal. normocephalic and atraumatic Tympanic Membrane ED: Yes TM's clear Eyes PERRL and EOMs intact bilaterally General Eye ED: Negative for pale conjunctiva or scleral icterus Neck no lymphadenopathy, supple and no JVD Resp normal respiratory effort and clear to auscultation bilaterally Cardio regular rate, regular rhythm, S1 normal heart sound, S2 normal heart sound and no murmurs GI non-tender, non-distended and no masses Auscultation: normoactive bowel sounds Palpation: soft Back/Spine no CVA tenderness Extremity full ROM General Extremety ED: Negative for edema or tenderness General Extremity: Negative for edema Neuro CN's II-XII intact bilaterally, moves all extremities, no sensory deficits noted and gait normal Sensorium / Orientation: alert Motor Exam: strength 5/5 throughout Psych Mood & Affect: depressed MDM MDM MDM Narrative Medical decision making narrative: Differential diagnosis is gastritis, peptic ulcer disease, persistent pancreatitis. Will obtain CBC, hepatic profile and lipase. Patient was ordered a GI cocktail based on CT results from Thursday and IV opiate analgesic for her pain that is felt to be partially attributed to pancreatitis. Lab Data Attestation: I reviewed the patient's lab results. Lab results narrative: White count is slightly elevated and slightly higher than noted on Thursday. Lipase is now 3 times normal. This is consistent with pancreatitis. As previously documented amylase was normal on Thursday and lipase was only slightly elevated 95. Labs: Laboratory Results - last 24 hr 03/26/23 03/26/23 14:20 14:20 WBC 12.9 H RBC 4.88 Hgb 13.7 Hct 42.8 MCV 87.7 MCH 28.1 MCHC 32.0 RDW Std Deviation 52.5 H RDW Coeff of Dick 16.3 H Plt Count 291 MPV 11.2 Immature Gran % (Auto) 0.500 Neut % (Auto) 76.8 H Lymph % (Auto) 12.4 L [place] % (Auto) 7.9 Eos % (Auto) 1.9 Baso % (Auto) 0.5 Absolute Neuts (auto) 9.9 H Absolute Lymphs (auto) 1.60 Nucleated RBC % 0 Total Bilirubin 0.40 Direct Bilirubin 0.06 AST 25 ALT 28 Alkaline Phosphatase 54 Total Protein 8.2 Albumin 3.6 Globulin 4.6 H Lipase 219 H Treatment and Re-Evaluation :: Reassessed 30 minutes after she received a GI cocktail. Her pain is resolved. Since her lipase has triple Will prescribe opiate analgesia. She has been instructed take a full pill and not half pill. And she also was provided Sucre fate. Per Dr. Moe's note he recommended possible EGD. We will have her follow-up with Dr. Moe as well as her PCP. Discharge Plan Triage Chief Complaint: Abd Pain ED Provider: Travis Ventura Dx/Rx/DC Orders Clinical Impression: Acute pancreatitis, Gastric reflux, Gastritis, Epigastric pain Instructions: ED GERD (Adult), ED Pancreatitis Prescriptions: New oxycodone-acetaminophen [oxycodone-acetaminophen] 5-325 mg tablet 1 tab PO Q6H PRN PRN (Reason: pain) 5 Days Qty: 20 0RF sucralfate [Carafate] 1 gram tablet 1 g PO .QID Qty: 120 0RF Rx Instructions: Half hour before meals and at bedtime No Action cyclobenzaprine 10 mg tablet 10 mg PO QHS PRN (Reason: Sleep) metformin 500 mg tablet 1,000 mg PO BID Label Comments: take 2 tablets by mouth twice a day gabapentin 600 mg tablet 600 mg PO QHS glipizide 10 mg tablet 10 mg PO QHS metoprolol succinate 100 mg tablet extended release 24 hr 100 mg PO BID Label Comments: take 1 tablet by mouth twice a day omeprazole 40 mg capsule,delayed release(DR/EC) 40 mg PO BID ferrous sulfate [FeroSul] 325 mg (65 mg iron) tablet 325 mg PO BID Rx Instructions: WILL STOP 10/19 FOR egd, COLONOSCOPY 10/22 hydrochlorothiazide 25 mg tablet 25 mg PO DAILY spironolactone 50 mg tablet 50 mg PO DAILY valsartan 160 mg tablet 160 mg PO BID Label Comments: take 1 tablet by mouth twice a day rosuvastatin 40 mg tablet 40 mg PO QHS duloxetine 30 mg capsule,delayed release(DR/EC) 30 mg PO DAILY gabapentin 300 mg Tablet 300 mg PO DAILY Brilinta 90 mg tablet 90 mg PO BID Rx Instructions: WILL STOP 10/19 FOR egd, COLONOSCOPY 10/22 Jardiance 25 mg tablet 25 mg PO .AFTERNOON Tou[employer]o SoloStar U-300 Insulin 300 unit/mL (1.5 mL) insulin pen 28 unit SUBCUT DAILY oxycodone-acetaminophen [Percocet] 5-325 mg tablet 1 tab PO Q8H PRN (Reason: pain) 5 Days Qty: 15 0RF budesonide 3 mg capsule,delayed,extend.release 9 mg PO DAILY Qty: 270 1RF Rx Instructions: take three capsules to equal 9mg once a day. Primary Care Provider: Juliann Otoole Referrals: Juliann Otoole DO [Primary Care Provider] - As Needed Friend,DO Tj [Med Staff - Active Staff] - 1 Week if not improving Disposition Disposition: Home, Self Care
[2023-03-26 14:37] LABS: Absolute Neutrophil Count 9.9 X10^3/uL (2.0-7.7); Basophil# 0.07 X10^3/uL; Basophil% 0.5 % (0-1); Eosinophil# 0.25 X10^3/uL; Eosinophils% 1.9 % (0-5); Hematocrit 42.8 % (37-47); Hemoglobin 13.7 g/dL (12.0-15.0); Lymphocyte % 12.4 % (19-41); Mean Corpuscular Hgb 28.1 pg (27.0-32.0); Mean Corpuscular Volume 87.7 fL (81-99); Mean Platelet Vol. 11.2 fl (6.2-12.0); Monocyte# 1.02 X10^3/uL; Monocyte% 7.9 % (0-10); NRBC Flagged by Analyzer 0 % (0-5); Neutrophil # 9.92 X10^3/uL (2.7-7.7); Neutrophil % 76.8 % (47-70); Platelet Count 291 K/mm3 (150-450); RBC Distribution Width CV 16.3 % (11.6-14.6); RBC Distribution Width SD 52.5 fl (35.1-43.9); Red Blood Count 4.88 M/mm3 (4.2-5.4); White Blood Count 12.9 K/mm3 (4.4-11.0)
[2023-03-26] MEDS: Ondansetron 4 MG/2 ML Vial IV (14:52)
[2023-03-26] MEDS: 0.9% Normal Saline 1,000 ML 1000 ML IV (14:52)
[2023-03-26] MEDS: Morphine 4 MG/ML Syringe IV (14:52)
[2023-03-26 14:57] LABS: AST(SGOT) 25 U/L (15-37); Alanine Aminotransfer ALT/SGPT 28 U/L (13-56); Albumin, Serum 3.6 g/dL (3.2-5.0); Alkaline Phosphatase 54 U/L (45-117); Bilirubin, Direct 0.06 mg/dL (0.00-0.30); Globulin 4.6 g/dL (2.2-4.2); Lipase 219 U/L (13-75); Protein, Total 8.2 g/dL (6.4-8.2)
[2023-03-26] MEDS: Mag Hydrox/Al Hydrox/Simeth 30 ML UDC PO (15:12)
== END 2023-03-26 15:58 | disposition home or self-care (01) ==
PROVIDERS: Emergency Provider Emergency Medicine; PCP Internal Medicine; Visit Provider Emergency Medicine
DX: K85.90 Acute pancreatitis without necrosis or infection, unspecified (principal); K21.9 Gastro-esophageal reflux disease without esophagitis; K29.70 Gastritis, unspecified, without bleeding; R10.13 Epigastric pain; F17.210 Nicotine dependence, cigarettes, uncomplicated; I25.2 Old myocardial infarction; E66.9 Obesity, unspecified; Z86.16 Personal history of COVID-19; Z99.81 Dependence on supplemental oxygen; Z95.5 Presence of coronary angioplasty implant and graft
CPT/HCPCS: 80076; 83690; 85025; 96361; 96374; 96375; 99283; J7030; A4216; J2405

== ENCOUNTER → 2023-11-16 | Outpatient (CLI) | payer MEDICARE, SELFPAY ==
[2023-11-16 15:40] LABS: Absolute Lymphocyte Count 1.63 X10^3/uL (0.83-4.51); Absolute Neutrophil Count 6.3 X10^3/uL (2.0-7.7); Basophil# 0.07 X10^3/uL; Basophil% 0.8 % (0-1); Eosinophils% 3.3 % (0-5); Hematocrit 39.5 % (37-47); Hemoglobin 11.7 g/dL (12.0-15.0); Lymphocyte # 1.63 X10^3/ul (0.83-4.51); Mean Corp Hgb Conc 29.6 g/dL (32-36); Mean Corpuscular Hgb 25.9 pg (27.0-32.0); Mean Corpuscular Volume 87.4 fL (81-99); Mean Platelet Vol. 10.5 fl (6.2-12.0); Monocyte# 0.76 X10^3/uL; Monocyte% 8.4 % (0-10); NRBC Flagged by Analyzer 0 % (0-5); Neutrophil # 6.29 X10^3/uL (2.7-7.7); Neutrophil % 69.2 % (47-70); Platelet Count 266 K/mm3 (150-450); RBC Distribution Width CV 14.9 % (11.6-14.6); RBC Distribution Width SD 47.8 fl (35.1-43.9); RET-HE 25.8 pg (30-35); Red Blood Count 4.52 M/mm3 (4.2-5.4); Reticulocyte Count 1.67 % (0.5-1.5); White Blood Count 9.1 K/mm3 (4.4-11.0)
[2023-11-16 16:25] LABS: Amylase 30 U/L (25-115); Ferritin 6 ng/mL (8-252); Iron 32 ug/dL (50-170); Iron Binding Capacity,Total 370 ug/dL (250-450); LDH 197 U/L (84-246); Lipase 30 U/L (13-75); Triglycerides 144 mg/dL
[2023-11-18 13:08] LABS: Anti-Centromere B Ab <0.2 AI (0.0-0.9); Anti-Chromatin <0.2 AI (0.0-0.9); Anti-Jo <0.2 AI (0.0-0.9); Anti-Scleroderma-70 AB <0.2 AI (0.0-0.9); Anti-dsDNA Ab <1 IU/mL (0-9); RNP Ab <0.2 AI (0.0-0.9); SJOGREN'S Anti-SS-A test < 0.2 AI (0.0-0.9); SJOGREN'S Anti-SS-B test < 0.2 AI (0.0-0.9); Smith Ab <0.2 AI (0.0-0.9)
[2023-11-21 04:07] LABS: Albumin 3.6 g/dL (2.9-4.4); Alpha-1-Globulins 0.2 g/dL (0.0-0.4); Carbohydrate AG 19-9 11 U/mL (0-35); Endomysial Antibody IgA Negative (Negative); Gastrin, Serum 307 pg/mL (0-115); Haptoglobin 218 mg/dL (37-355); IgG, Quant 994 mg/dL (586-1602); Immunoglobulin A 249 mg/dL (87-352); Immunoglobulin E 151 IU/mL (6-495); Immunoglobulin G, Subclass 1 772 mg/dL (248-810); Immunoglobulin G, Subclass 2 162 mg/dL (130-555); Immunoglobulin G, Subclass 3 117 mg/dL (15-102); Immunoglobulin G, Subclass 4 33 mg/dL (2-96); Immunoglobulin M 42 mg/dL (26-217); PROEL- TOTAL PROTEIN 6.9 g/dL (6.0-8.5); t-Transglutaminase IgA <2 U/mL (0-3)
== END | disposition home or self-care (01) ==
PROVIDERS: PCP Internal Medicine; Referring Provider Internal Medicine Gastroenterology; Visit Provider Internal Medicine Gastroenterology
DX: R19.7 Diarrhea, unspecified (principal); K52.831 Collagenous colitis; K85.90 Acute pancreatitis without necrosis or infection, unspecified; K21.9 Gastro-esophageal reflux disease without esophagitis; D64.9 Anemia, unspecified
CPT/HCPCS: 36415; 82150; 82728; 82784; 82785; 82787; 82941; 83010; 83516; 83540; 83550; 83615; 83690; 84165; 84478; 85025; 85045; 86225; 86235; 86255; 86301; 86316; 86334

== ENCOUNTER → 2024-02-19 | Outpatient (CLI) | payer MEDICARE, SELFPAY ==
[2024-02-19 17:53] LABS: Vitamin B12 1014 pg/mL (211-911)
[2024-02-25 17:07] LABS: Anti-Parietal Cell AB, QN 2.2 Units (0.0-20.0); Gastrin, Serum 292 pg/mL (0-115); IgG, Quant 1018 mg/dL (586-1602); Immunoglobulin G, Subclass 1 654 mg/dL (248-810); Immunoglobulin G, Subclass 2 170 mg/dL (130-555); Immunoglobulin G, Subclass 3 112 mg/dL (15-102); Immunoglobulin G, Subclass 4 30 mg/dL (2-96)
== END | disposition home or self-care (01) ==
LOC: MTLAB 14:28
PROVIDERS: PCP Internal Medicine; Referring Provider Internal Medicine Gastroenterology; Visit Provider Internal Medicine Gastroenterology
DX: K52.831 Collagenous colitis (principal); K85.90 Acute pancreatitis without necrosis or infection, unspecified
CPT/HCPCS: 36415; 82533; 82607; 82746; 82784; 82787; 82941; 83516; 86316; 86340

== ENCOUNTER 2024-04-12 12:55 | Day surgery (SDC) | payer MEDICARE, SELFPAY ==
[2024-04-12] VITALS (8 sets, daily range): BP systolic 109–182; BP diastolic 61–96; PULSE 57–63; RESP 16–18; TEMP 36.1–36.5; O2SAT 93–98; BMI 36.9
[2024-04-12] MEDS: Lactated Ringers 1,000 ML 15 ML IV (13:27)
[2024-04-12 13:48] LABS: Bedside Glucose 141 mg/dL (74-106)
--- NOTE | 2024-04-12 13:55 | PRE.ANES_ITS ---
ASA Classification* ASA Classification ASA Classification: 3 Assessment & Plan Anesthesia* Anesthesia Assessment Anesthesia Assessment: Discussed sedation and/or anesthesia options, risks, benefits, and alternatives with patient/parents/legal guardian/POA. Questions invited. The patient/parents/legal guardian/POA seems to understand and agrees to proceed with anesthesia plan. Reviewed the physical assessment, medical history, allergy history and patient home medications list prior to surgery/procedure/anesthetic and documented any changes. Performed airway and anesthesia risk assessments. Anesthesia Type Anesthesia Type: MAC History Source History Obtained from:: Patient and Chart Anesthesia Focused Assessment* Temperature: 96.9 F Pulse Rate: 60 Blood Pressure: 182/96 Respiratory Rate: 16 Pulse Ox: 96 Oxygen Delivery Method: Nasal Cannula (Room air during the day. Nasal cannula 2 L at night.) Airway Assessment Mouth opens: >3 cm Mallampati Score: IV Teeth Condition: Caps/Crowns (Left upper molar is tight.) and Missing (Few missing.) Neck Range of motion (ROM): Limited ROM (Somewhat limited extension. Patient is status post fusion of her C4 and C5) Pertinent Findings EKG Pertinent Findings:: June 07, 2022. Normal sinus rhythm. Stress Test Pertinent Findings:: 2019. Ejection fraction 64%. Stress test was negative Consults Pertinent Findings:: November 06, 2023. Noted the patient has aortic abdominal aneurysm 3.3 x 3.4 cm. There is left renal artery stenosis. Coronary artery disease is stable. Focused Labs Anesthesia Preop lab: CBC WBC 9.1 K/mm3 (4.4-11.0) 11/16/23 14:57 RBC 4.52 M/mm3 (4.2-5.4) 11/16/23 14:57 Hgb 11.7 g/dL (12.0-15.0) L 11/16/23 14:57 Hct 39.5 % (37-47) 11/16/23 14:57 Plt Count 266 K/mm3 (150-450) 11/16/23 14:57 CHEMISTRY Potassium 4.1 mmol/L (3.5-5.1) 03/21/23 16:35 Sodium 135 mmol/L (136-145) L 03/21/23 16:35 BUN 21 mg/dL (7-18) H 03/21/23 16:35 Creatinine 1.13 mg/dL (0.55-1.02) H 03/21/23 16:35 Glucose 150 mg/dL (74-106) H 03/21/23 16:35 POC Glucose 141 mg/dL (74-106) H 04/12/24 13:23 COAG Pre-Assessment Diagnosis/Proposed Procedure Planned Operative Procedure(s): EGD Anesthesia History Anesthesia History - muffler hand: Anesthesia History - muffler hand Hx Hospitalization No 04/04/24 14:23 Any Problems With Anesthesia No 04/04/24 14:23 Cholinesterase deficiency No 04/04/24 14:23 You/Your Family Experience No 04/04/24 14:23 fever (hyperthermia) with Relationship Recent Exposure to Contagious No 04/12/24 13:18 Disease Does patient have nerve No 04/04/24 14:23 stimulator Patient instructed to have device shut off --Does patient have Pacemaker No 04/12/24 13:18 or ICD? When Was Last Pacemaker Check QUESTION #4 FULL TEXT: You/Your Family Experience fever (hyperthermia) with Anesthesia Last Oral Intake Last Oral intake: Last Oral Intake NPO since 22:00 04/12/24 13:18 Meds taken in AM with sips of water? Meds patient instructed to take am of surgery Patient took candy at 2:00 when her blood sugar was low. She did take her blood pressure medications this morning with sips of water. Any additional information?: Yes NPO since: 02:00 Meds taken in AM with sips of water?: Yes PONV PONV - muffler hand: PONV - muffler hand Female Yes 04/04/24 14:23 HX of Motion Sickness No 04/04/24 14:23 HX of N/V After Surgery No 04/04/24 14:23 Non-Smoker No 04/04/24 14:23 Duration of Surgery greater No 04/04/24 14:23 than 60 minutes Number of Risk Factors 1 04/04/24 14:23 PONV Score Low Risk 04/04/24 14:23 Height & Weight Height & Weight: Anesthesia: Height & Weight Height 5 ft 4 in 04/12/24 13:18 Weight: 97.7 kg 04/12/24 13:18 Body Mass Index (BMI) 36.9 04/12/24 13:18 Respiratory Assessment Respiratory Assessment - muffler hand: Respiratory Tract Infection Hx - muffler hand Hx Respiratory Tract Infection No 04/04/24 14:23 STOP Sleep Apnea STOP Sleep Apnea - muffler hand: STOP Sleep Apnea - muffler hand Hx Hypertension Yes: CONTROLLED WITH MEDS 04/04/24 14:23 Hx Sleep Apnea Yes: USES 2L O2 AT NIGHT 04/04/24 14:23 CPAP No 04/04/24 14:23 BIPAP No 04/04/24 14:23 Do you snore loudly (louder than talking or can be heard Do you often feel tired/ fatigued/ sleepy during daytime? Has anyone observed you stop breathing during sleep? STOP Results Positive 04/04/24 14:23 QUESTION #5 FULL TEXT : Do you snore loudly (louder than talking or can be heard through closed doors)? Tobacco Use History Tobacco Use History - muffler hand: Tobacco Use History - muffler hand Tobacco Use Smoking Status Current every day smoker 04/04/24 14:23 Hx Tobacco Use Yes 04/04/24 14:23 Years Smoking Packs Smoked per Day Smoking Cessation Date was within the last 15 years Hx Smoking Cessation Date Hx Smoking Cessation Counseling Any additional information?: Yes Smoking Status: Current every day smoker (Patient smoked this morning) Hematologic Medial History Hematologic Hx - muffler hand: Hematologic Medical Hx - review scheduling coordinator Hx of Blood Transfusion No 04/04/24 14:23 Hx of Transfusion in last 3 No 04/04/24 14:23 Months Date of Last Transfusion (if within last 3 months) Ever experience any problems No 04/04/24 14:23 with transfusion(s)? Specify any problems Hx of Preganancy in last 3 No 04/04/24 14:23 Months Nurse Filling Out Transfusion VCHRISTIN 04/04/24 14:23 & Questions: Date: 04/04/24 04/04/24 14:23 Time: 14:25 04/04/24 14:23 Patient unable to answer at this time (ie. confused, unrespo /Reproduction History /Reproductive History - muffler hand: /Reproductive Hx- muffler hand Hx Now Gestational Age (in weeks): EDC: Hx Hx Para Hx Section SAB No 04/04/24 14:23 Active Medications Active Medications: Current Medications Generic Name Dose Route Start Last Admin Trade Name Freq PRN Reason Stop Dose Admin Lactated Ringer's 1,000 mls @ 15 mls/hr 04/12/24 13:15 04/12/24 13:27 IV 15 mls/hr .Q48H JOE Administration PFSH Medical History Rash Pancreatitis Post-menopausal Depression Back pain Heme positive stool P-ANCA titer positive Anemia COVID Wears glasses Anxiety Insulin dependent diabetes mellitus Arthritis History of kidney disease Anemia High cholesterol Easy bruising Excessive bleeding Injury of head and neck Gastric reflux Smoker On home oxygen therapy COPD (chronic obstructive pulmonary disease) Chronic cough History of pain when walking Leg cramps History of edema Arteriosclerosis History of echocardiogram History of stress test Hypertension Cardiology follow-up encounter History of heart attack Abdominal aortic aneurysm Family history of brain aneurysm History of stent insertion of renal artery Dysphagia Diarrhea Home Medications ?Medication ?Instructions ?Recorded ?Last Taken ?Type duloxetine 30 mg capsule,delayed 30 mg PO DAILY ANXIETY 10/17/21 Unknown History release empagliflozin 25 mg tablet 25 mg PO .AFTERNOON 10/17/21 Unknown History (Jardiance) ferrous sulfate 325 mg (65 mg 325 mg PO DAILY SUPPLEMENT 10/17/21 Unknown History iron) tablet (FeroSul) gabapentin 300 mg tablet 300 mg PO DAILY 10/17/21 Unknown History gabapentin 600 mg tablet 600 mg PO QHS 10/17/21 Unknown History glipizide 10 mg tablet 10 mg PO DAILY 10/17/21 Unknown History insulin glargine U-300 conc 300 20 unit subcut DAILY 10/17/21 Unknown History unit/mL (1.5 mL) subcutaneous pen (Wilmer SolAlex U-300 Insulin) metformin 500 mg tablet 1,000 mg PO BID 10/17/21 Unknown History metoprolol succinate 100 mg 100 mg PO BID 10/17/21 04/12/24 History tablet,extended release 24 hr omeprazole 40 mg capsule,delayed 40 mg PO BID 10/17/21 10/22/21 11:00 History release rosuvastatin 40 mg tablet 40 mg PO QHS 10/17/21 Unknown History spironolactone 50 mg tablet 50 mg PO DAILY 10/17/21 04/12/24 History valsartan 160 mg tablet 160 mg PO BID 10/17/21 04/12/24 History budesonide 3 mg 9 mg (3 x 3 mg) PO DAILY #270 caps 04/01/24 Unknown Rx capsule,delayed,extended release albuterol sulfate 90 mcg/actuation 2 puff inhalation Q4H PRN PRN 04/04/24 Unknown History aerosol inhaler shortness of breath or wheezing aspirin 325 mg tablet 325 mg PO DAILY 04/04/24 04/08/24 History furosemide 20 mg tablet 20 mg PO DAILY 04/04/24 Unknown History ketoconazole 2 % topical cream 1 applic topical DAILY 04/04/24 Unknown History Allergy/AdvReac Type Severity Reaction Status Date / Time bupropion (From Wellbutrin) Allergy Hives Verified 04/12/24 13:17 clopidogrel (From Plavix) Allergy Rash Verified 04/12/24 13:17 atropine (From Lomotil) AdvReac pancreatiti Verified 04/12/24 13:17 s codeine AdvReac Nausea/Vom/ Verified 04/12/24 13:17 Diarrhea diphenoxylate (From Lomotil) AdvReac pancreatiti Verified 04/12/24 13:17 s Surgical History Hx of colonoscopy History of oophorectomy History of cardiac catheterization History of coronary artery stent placement History of carpal tunnel surgery History of bilateral oophorectomies History of neck surgery History of rotator cuff surgery History of inguinal hernia repair History of umbilical hernia repair History of Social History household members: none Smoking Status: Current every day smoker tobacco type: cigarettes substance use type: does not use Review of Systems (Anesthesia) ROS Narrative System reviewed and no additional complaints, except as documented.
--- NOTE | 2024-04-12 14:13 | HP.PCM_ITS ---
History and Physical Date of Admission: 04/12/24 ASHA QUINTERO, is a 68 F who presents to the office today for *BGI established 12.04.01 for anemia noted by usability strategist (CKD and atrophic kidney r/t poor blood flow s/p stenting). CAD s/p PTCA with stenting; brain aneurysm s/p clipping; aortic aneurysm. Reports iron and blood transfusion. Loose stools possibly r/t metformin use. ? EGD/colonoscopy 10.22.21 EGD LA Grade A esophagitis; moderate Schatzki ring, Savary 54F; prominent gastric folds; duodenitis. Without path changes ? Colonoscopy AVM with recent bleed, APC; congestion. Collagenous colitis Contact 11.04.21 with concern regarding rectal bleeding with clots day prior and this day with another episode but to lesser severity. OV 11.06.21 rectal bleeding has resolved; blood thinner is being held. Continues to have dysphagia with specific foods; budesonide has been helpful. Carafate not yet started. ? Capsule endoscopy 12.09.21 bleeding seen in small bowel; mild enteritis, likely NSAID induced. OV 12.20.21 doing well but is having difficulty with Carafate timing. Budesonide 9mg and omeprazole BID continue. Dysphagia has improved. ? Biochemical 12.20.21 CBC, ESR, retic (H2.1), CMP, CRP, LDH, transferrin, ferritin, CCP IgG, C3, C4, CH50, GAME, celiac, Factor V, Protein S, lupus, RF without pertinent abnormality ? apANCA H1:320 OV 05.19.22 Continue budesonide, Lomotil PRN. ? Biochemical 05.19.22 liver profile, AMA, ASM WNL OV 08.12.22 stools have normalized. Continue budesonide 9mg (flare previously when reduction attempted). OV 12.08.22 continue budesonide taper at a later date. Rheumatology did not find concern regarding ANCA. ? Biochemical 12.08.22 CBC (anemic, hgb L10.8), TIBC without pertinent abnormality? Iron L22, ferritin L5 ? Stool occult + ? EGD/colonoscopy 01.08.23 EGD moderate Schatzki ring, Savary 60F; irregular Zline; prominent gastric folds. Without path changes. ? Colonoscopy diverticulosis; two AVM with bleeding, heater probe. No specimens. OV 4.28.23 Collagenous colitis treatment of Budesonide continues, attempt taper. CT abd/pel without contrast (ED abd pain) calcified splenic granuloma; diffuse pancreatic enlargement with edema, acute pancreatitis; renal atrophy and cysts; stool throughout colon; atherosclerotic disease; AAA 36mm; uterine atrophy; large ventral hernia OV 2.5.24 continues with 9mg budesonide and with this her GI symptoms are resolved. ROS Const Constitutional: Positive for headache(s); No fatigue ENT ENT: Positive for headache(s); No difficulty swallowing Gastro GI: Positive for bloating and excessive flatus; No abdominal pain, belching, change in bowel habits, change in stool character, coffee ground emesis, constipation, cramping, diarrhea, heartburn, difficulty swallowing, feeling full early, incontinent of stools, Vomiting blood/hematemesis, Blood in stool, loose stools, Black,tarry stools, nausea/dyspepsia, pain with swallowing, vomiting or other Musc Musculoskeletal: Positive for joint pain, numbness, tingling and Arthritis Skin Skin: No yellowing of the eye or itchy eyes Neuro Neurology: Positive for headache(s), numbness and tingling Psych Psychiatric: Positive for anxiety and No depression Endo Endocrine: No fatigue Aller/Imm Allergy/Immunologic: No itchy eyes Lnae/Lymp Hematologic/Lymphatic: No easy bleeding or easy bruising Exam Const General: cooperative and comfortable Orientation: alert, awake and oriented x3 Quality Reporting Tobacco Screening ([facility] 138) Smoking Status: Current every day smoker Assessment and Plan Assessment and Plan (1) Collagenous colitis: Status: Chronic Plan: We discussed her egd and colonoscopy results. Next colonoscopy 5 yrs. EGD as needed. She had flare of diarrhea when she tried to d/c budesonide previously. Recommend try decreasing from 9 mg daily to 6 mg daily, then 3 mg daily if no diarrhea, otherwise can continue. f/u 6 mos (2) Gastric reflux: Status: Chronic Plan: Continue PPI (3) Pancreatitis: Status: Acute Plan: Acute recurrent idiopathic pancreatitis. I will check an IgG4 level, CEA, CA 19-9 and she should get an MRCP. (4) iron deficiency anemia-she underwent a capsule study and it did show some signs of bleeding in the first portion of the jejunum. We will perform an push enteroscopy with help to get to the area where she seems to be having blood loss anemia. Orders: Orders CBC W/Diff, Automated Today K21.9 - Gastro-esophageal reflux disease without esophagitis, K52.831 - Collagenous colitis, K85.90 - Acute pancreatitis without necrosis or infection, unspecified, R19.7 - Diarrhea, unspecified Ferritin Today D64.9 - Anemia, unspecified, K21.9 - Gastro-esophageal reflux disease without esophagitis, K52.831 - Collagenous colitis, K85.90 - Acute pancreatitis without necrosis or infection, unspecified Haptoglobin Today K21.9 - Gastro-esophageal reflux disease without esophagitis, K52.831 - Collagenous colitis, K85.90 - Acute pancreatitis without necrosis or infection, unspecified DYLLAN + Protein Elect, Serum Today K21.9 - Gastro-esophageal reflux disease without esophagitis, K52.831 - Collagenous colitis, K85.90 - Acute pancreatitis without necrosis or infection, unspecified Iron Binding Capacity,Total Today D64.9 - Anemia, unspecified, K21.9 - Gastro- esophageal reflux disease without esophagitis, K52.831 - Collagenous colitis, K85.90 - Acute pancreatitis without necrosis or infection, unspecified LDH Today K21.9 - Gastro-esophageal reflux disease without esophagitis, K52.831 - Collagenous colitis, K85.90 - Acute pancreatitis without necrosis or infection, unspecified Retic Panel Count Today K21.9 - Gastro-esophageal reflux disease without esophagitis, K52.831 - Collagenous colitis, K85.90 - Acute pancreatitis without necrosis or infection, unspecified Iron Today D64.9 - Anemia, unspecified, K21.9 - Gastro-esophageal reflux disease without esophagitis, K52.831 - Collagenous colitis, K85.90 - Acute pancreatitis without necrosis or infection, unspecified Celiac Disease Profile Today K21.9 - Gastro-esophageal reflux disease without esophagitis, K52.831 - Collagenous colitis, K85.90 - Acute pancreatitis without necrosis or infection, unspecified Immunoglobulins G/A/M/E Today K21.9 - Gastro-esophageal reflux disease without esophagitis, K52.831 - Collagenous colitis, K85.90 - Acute pancreatitis without necrosis or infection, unspecified Amylase Today K21.9 - Gastro-esophageal reflux disease without esophagitis, K52.831 - Collagenous colitis, K85.90 - Acute pancreatitis without necrosis or infection, unspecified Lipase Today K21.9 - Gastro-esophageal reflux disease without esophagitis, K52.831 - Collagenous colitis, K85.90 - Acute pancreatitis without necrosis or infection, unspecified Triglycerides Today K21.9 - Gastro-esophageal reflux disease without esophagitis, K52.831 - Collagenous colitis, K85.90 - Acute pancreatitis without necrosis or infection, unspecified IgG Subclasses Today K21.9 - Gastro-esophageal reflux disease without esophagitis, K52.831 - Collagenous colitis, K85.90 - Acute pancreatitis without necrosis or infection, unspecified JOSE Comprehensive Panel Today K21.9 - Gastro-esophageal reflux disease without esophagitis, K52.831 - Collagenous colitis, K85.90 - Acute pancreatitis without necrosis or infection, unspecified Gastrin, Serum Today K21.9 - Gastro-esophageal reflux disease without esophagitis, K52.831 - Collagenous colitis, K85.90 - Acute pancreatitis without necrosis or infection, unspecified Chromogranin A Today R19.7 - Diarrhea, unspecified Carbohydrate AG 19-9 Today K85.90 - Acute pancreatitis without necrosis or infection, unspecified
--- NOTE | 2024-04-12 14:43 | OP.CCLET_ITS ---
04/12/2024 Juliann Otoole Do Re : Upper GI endoscopy procedure for Mercy Zhang Dear Sydnie This procedure was performed on Friday, April 12, 2024. My impressions and recommendations are as follows: Impressions : - Normal esophagus. - Enlarged gastric folds. - No gross lesions in the fourth portion of the duodenum. - No specimens collected. Recommendations : - Discharge patient to home. - Resume previous diet. - Continue present medications. - CT scan of the abdomen pelvis regarding aortic aneurysm and pancreatitis My findings are described in the full procedure note, which is enclosed. If I can be of further assistance, please feel free to contact me at . Sincerely, Tj Moe DO 04/12/2024 2:43:16 PM This report has been signed electronically.
--- NOTE | 2024-04-12 14:43 | OP.EGD_ITS ---
Patient Name: Mercy Zhang Procedure Date: 04/12/2024 2:15 PM Date of : 1955 Age: 68 Procedure: Upper GI endoscopy Indications: Iron deficiency anemia, Recent gastrointestinal bleeding, Abnormal video capsule endoscopy Providers: Tj Moe DO Referring MD: Tj Moe DO Medicines: Monitored Anesthesia Care Patient Profile: This is a 68 year old female. Refer to note in patient chart for documentation of history and physical. Patient has symptoms of acute abdominal distention and dysphagia with both liquids and solids. Complications: No immediate complications. Procedure: Pre-Anesthesia Assessment: - Prior to the procedure, a History and Physical was performed, and patient medications and allergies were reviewed. The patient is competent. The risks and benefits of the procedure and the sedation options and risks were discussed with the patient. All questions were answered and informed consent was obtained. Patient identification and proposed procedure were verified by the physician in the pre-procedure area. Mental Status Examination: alert and oriented. Airway Examination: normal oropharyngeal airway and neck mobility. Respiratory Examination: clear to auscultation. CV Examination: normal. Prophylactic Antibiotics: The patient does not require prophylactic antibiotics. Prior Anticoagulants: The patient has taken no anticoagulant or antiplatelet agents. ASA Grade Assessment: III - A patient with severe systemic disease. After reviewing the risks and benefits, the patient was deemed in satisfactory condition to undergo the procedure. The anesthesia plan was to use monitored anesthesia care (MAC). Immediately prior to administration of medications, the patient was re-assessed for adequacy to receive sedatives. The heart rate, respiratory rate, oxygen saturations, blood pressure, adequacy of pulmonary ventilation, and response to care were monitored throughout the procedure. The physical status of the patient was re-assessed after the procedure. After obtaining informed consent, the endoscope was passed under direct vision. Throughout the procedure, the patient's blood pressure, pulse, and oxygen saturations were monitored continuously. The Colonoscope was introduced through the mouth, and advanced to the fourth part of the duodenum. Small bowel enteroscopy was deemed necessary. The upper GI endoscopy was accomplished without difficulty. The patient tolerated the procedure well. Scope In: 2:26:50 PM Scope Out: 2:35:36 PM Total Procedure Duration Time 0 hours 8 minutes 46 seconds Findings: The examined esophagus was normal. Diffuse prominent gastric folds were found in the entire examined stomach. No gross lesions were noted in the fourth portion of the duodenum. Impression: - Normal esophagus. - Enlarged gastric folds. - No gross lesions in the fourth portion of the duodenum. - No specimens collected. Recommendation: - Discharge patient to home. - Resume previous diet. - Continue present medications. - CT scan of the abdomen pelvis regarding aortic aneurysm and pancreatitis Procedure Code(s): --- Professional --- 33033, Small intestinal endoscopy, enteroscopy beyond second portion of duodenum, not including ileum; diagnostic, including collection of specimen(s) by brushing or washing, when performed (separate procedure) CPT copyright 2021 [employer]. All rights reserved. The codes documented in this report are preliminary and upon carpenter helper maintenance review may be revised to meet current compliance requirements. Tj Moe DO 04/12/2024 2:43:16 PM This report has been signed electronically. Number of Addenda: 0 Note Initiated On: 04/12/2024 2:15 PM
--- NOTE | 2024-04-12 14:44 | PCM.POST.ANE ---
Anesthesia: Postop Eval I Current Vital Signs Temperature: 97.5 F Pulse Rate: 60 Blood Pressure: 109/93 Respiratory Rate: 18 Pulse Ox: 95 Oxygen Delivery Method: Room Air Assessment Airway patent: Yes Spontaneous unlabored respirations: Yes Mental status: Awake nausea: No Vomiting: No Anesthesia Complication: No Fluid Hydration Crystalloid volume administer (ml): 400 Total IV fluid infused: 400 Progress Note Anesthesia document: Postop Eval 1 completed: Yes
--- NOTE | 2024-04-12 16:56 | PCM.POSTANE2 ---
Anesthesia Postop Eval I Sum Postop Eval Completion status Anesthesia document: Postop Eval 1 completed: Yes Anesthesia Postop Eval I Summary Anesthesia Postop Eval I Summary: Anesthesia Postop Eval I: Assessment Summary Airway patent Yes 04/12/24 14:52 [email or web address] Spontaneous unlabored Yes 04/12/24 14:52 [email or web address] respirations Mental status Awake 04/12/24 14:52 [email or web address] nausea No 04/12/24 14:52 [email or web address] Vomiting No 04/12/24 14:52 [email or web address] Anesthesia Postop Eval I: Fluid Summary Crystalloid volume administer 400 04/12/24 14:52 [email or web address] (ml) Colloids volume administered ( ml) Blood Product volume administered (ml) Total IV fluid infused 400 04/12/24 14:52 [email or web address] Anesthesia Postop Eval I: Summary Notes Anesthesia Complication No 04/12/24 14:52 [email or web address] Anesthesia Complication Comment: Post-operative progress note Anesthesia: Postop Eval II Evaluation Mental status: Awake and Calm Pain Level: 0 nausea: No Vomiting: No Complications Anesthesia Complication: No
== END 2024-04-12 15:28 | disposition home or self-care (01) ==
LOC: EN 12:56 → AC 12:58
PROVIDERS: PCP Internal Medicine; Referring Provider Internal Medicine; Visit Provider Internal Medicine Gastroenterology
PROC: 0DJ08ZZ Inspection of Upper Intestinal Tract, Via Natural or Artificial Opening Endoscopic (ICD-10-PCS; CPT 43235; principal; 2024-04-12 13:55)
DX: K92.2 Gastrointestinal hemorrhage, unspecified (principal); J44.9 Chronic obstructive pulmonary disease, unspecified; F17.200 Nicotine dependence, unspecified, uncomplicated; K52.831 Collagenous colitis; D50.9 Iron deficiency anemia, unspecified; K21.9 Gastro-esophageal reflux disease without esophagitis; K85.90 Acute pancreatitis without necrosis or infection, unspecified; Z79.84 Long term (current) use of oral hypoglycemic drugs; Z79.82 Long term (current) use of aspirin; Z79.899 Other long term (current) drug therapy; E78.00 Pure hypercholesterolemia, unspecified; I10 Essential (primary) hypertension
CPT/HCPCS: 43235; 82962; J7120; J2405

== ENCOUNTER 2024-06-07 16:10 | Emergency (ER) | payer MEDICARE, SELFPAY ==
[2024-06-07 16:11] VITALS: BP 201/92; PULSE 63; RESP 22; TEMP 36.1; O2SAT 93; BMI 36.8
--- NOTE | 2024-06-07 16:18 | EDS_ITS ---
HPI HPI - GI History of Present Illness Chief Complaint: Abd Pain Informant: patient Abdominal Pain/Flank Pain Onset: Weeks (1) Context: Gradual Onset Timing: Continuous Quality: Aching, Burning and Sharp Location: Epigastric and LUQ Worsened by: Nothing Relieved by: Nothing Nausea/Vomiting/Emesis GI Symptom: Positive for Nausea; Negative for Vomiting Diarrhea/Melena/Hematochezia GI Symptom: Negative for Diarrhea, Melena or Hematochezia Associated Symptoms Associated Symptoms: Positive for Frequency; Negative for Dysuria or Hematuria Narrative Narrative: The patient presents with abdominal pain and back pain that has been getting worse over the last week. Patient states it started in her back and radiated around to her left upper quadrant and epigastric area. Patient states it feels similar to her prior episodes of pancreatitis. Patient describes her pain as sharp, aching, and burning. Patient admits to some nausea but denies any vomiting. Patient denies any diarrhea, melena, or hematochezia. Patient states nothing makes her pain better and nothing makes it worse. Patient admits to some urinary frequency but denies any dysuria or hematuria. [facility] Medical History Rash Pancreatitis Post-menopausal Depression Back pain Heme positive stool P-ANCA titer positive Anemia COVID Wears glasses Anxiety Insulin dependent diabetes mellitus Arthritis History of kidney disease Anemia High cholesterol Easy bruising Excessive bleeding Injury of head and neck Gastric reflux Smoker On home oxygen therapy COPD (chronic obstructive pulmonary disease) Chronic cough History of pain when walking Leg cramps History of edema Arteriosclerosis History of echocardiogram History of stress test Hypertension Cardiology follow-up encounter History of heart attack Abdominal aortic aneurysm Family history of brain aneurysm History of stent insertion of renal artery Dysphagia Diarrhea Home Medications ?Medication ?Instructions ?Recorded ?Last Taken ?Type duloxetine 30 mg capsule,delayed 30 mg PO DAILY ANXIETY 10/17/21 Unknown History release empagliflozin 25 mg tablet 25 mg PO .AFTERNOON 10/17/21 Unknown History (Jardiance) ferrous sulfate 325 mg (65 mg 325 mg PO DAILY SUPPLEMENT 10/17/21 Unknown History iron) tablet (FeroSul) gabapentin 300 mg tablet 300 mg PO DAILY 10/17/21 Unknown History gabapentin 600 mg tablet 600 mg PO QHS 10/17/21 Unknown History glipizide 10 mg tablet 10 mg PO DAILY 10/17/21 Unknown History insulin glargine U-300 conc 300 20 unit subcut DAILY 10/17/21 Unknown History unit/mL (1.5 mL) subcutaneous pen (Wilmer Herreraar U-300 Insulin) metformin 500 mg tablet 1,000 mg PO BID 10/17/21 Unknown History metoprolol succinate 100 mg 100 mg PO BID 10/17/21 04/12/24 History tablet,extended release 24 hr omeprazole 40 mg capsule,delayed 40 mg PO BID 10/17/21 10/22/21 11:00 History release rosuvastatin 40 mg tablet 40 mg PO QHS 10/17/21 Unknown History spironolactone 50 mg tablet 50 mg PO DAILY 10/17/21 04/12/24 History valsartan 160 mg tablet 160 mg PO BID 10/17/21 04/12/24 History budesonide 3 mg 9 mg (3 x 3 mg) PO DAILY #270 caps 04/01/24 Unknown Rx capsule,delayed,extended release albuterol sulfate 90 mcg/actuation 2 puff inhalation Q4H PRN PRN 04/04/24 Unknown History aerosol inhaler shortness of breath or wheezing aspirin 325 mg tablet 325 mg PO DAILY 04/04/24 04/08/24 History furosemide 20 mg tablet 20 mg PO DAILY 04/04/24 Unknown History ketoconazole 2 % topical cream 1 applic topical DAILY 04/04/24 Unknown History hydrocodone-acetaminophen 5-325mg 1 tab PO Q6H PRN PRN Pain 3 days 06/07/24 Unknown Rx 5mg-325mg #10 TABLETS Allergy/AdvReac Type Severity Reaction Status Date / Time bupropion (From Wellbutrin) Allergy Hives Verified 06/07/24 16:11 clopidogrel (From Plavix) Allergy Rash Verified 06/07/24 16:11 atropine (From Lomotil) AdvReac pancreatiti Verified 06/07/24 16:11 s codeine AdvReac Nausea/Vom/ Verified 06/07/24 16:11 Diarrhea diphenoxylate (From Lomotil) AdvReac pancreatiti Verified 06/07/24 16:11 s Surgical History Hx of colonoscopy History of oophorectomy History of cardiac catheterization History of coronary artery stent placement History of carpal tunnel surgery History of bilateral oophorectomies History of neck surgery History of rotator cuff surgery History of inguinal hernia repair History of umbilical hernia repair History of Social History household members: none Smoking Status: Current every day smoker tobacco type: cigarettes substance use type: does not use ROS ROS ED Constitutional Constitutional ED: Denies chills or fever(s) Eyes Eyes: Denies blurry vision or change in vision ENT ENT ED: Denies rhinorrhea or sore throat Cardiovascular Cardiovascular: Reports chest pain; Denies palpitations Respiratory/Chest Respiratory/Chest: Denies cough or dyspnea Gastrointestinal Gastrointestinal: Reports abdominal pain and nausea; Denies diarrhea, melena or vomiting Genitourinary Genitourinary ED: Reports urinary frequency; Denies dysuria or hematuria Musculoskeletal Musculoskeletal: Reports back pain; Denies neck pain Integumentary Denies abscess or rash Neurologic Neurologic: Reports headache(s); Denies weakness Allergic/Immunologic Allergic/Immunologic ED: Denies mouth swelling or urticaria EXAM Physical Exam Const Vital Signs: 06/07/24 16:11 06/07/24 18:10 06/07/24 20:08 Temperature 97 F L Temperature Source Temporal Pulse Rate 63 71 80 Respiratory Rate 22 H 14 16 Blood Pressure 201/92 H 178/68 H 175/69 H Blood Pressure Mean 128 104 104 Pulse Ox 93 98 Oxygen Delivery Method Room Air Room Air Positive well nourished and well developed General Appearance ED: well developed and NAD HEENT Reports moist mucous membranes Neck supple and no JVD Resp normal respiratory effort and clear to auscultation bilaterally Cardio regular rate and regular rhythm GI non-distended and no masses Palpation: soft and tender epigastric and LUQ; Negative for guarding or rebound tenderness present Neuro CN's II-XII intact bilaterally, moves all extremities and no sensory deficits noted Sensorium / Orientation: alert Motor Exam: strength 5/5 throughout Psych mental status grossly normal MDM MDM MDM Narrative Medical decision making narrative: Differential diagnosis includes pancreatitis, gastritis, peptic ulcer disease, cholecystitis, cholelithiasis, cardiac dysrhythmia, cardiac ischemia, and electrolyte abnormality. EKG will be obtained to assess for cardiac dysrhythmia and cardiac ischemia. Chest x-ray will be obtained to assess for pneumonia or pneumothorax. CBC will be obtained to assess for leukocytosis and anemia. Comprehensive metabolic profile will be obtained to assess for electrolyte abnormality, renal function, and hepatic function. Lipase will be obtained to assess for pancreatitis. High-sensitivity troponin will be obtained to assess for cardiac ischemia. Urinalysis will be obtained to assess for urinary tract infection pyelonephritis. Lab Data Attestation: I reviewed the patient's lab results. Lab results narrative: CBC was reviewed and was within normal limits. Comprehensive metabolic profile was reviewed. Glucose was slightly elevated at 124. The remainder is within normal limits. High-sensitivity troponin was reviewed and was normal at 10. Lipase was reviewed and was slightly elevated at 124. Urinalysis was reviewed. There are positive nitrites. There are 0-5 white blood cells. Leukocyte esterase was negative. There is 2+ bacteria. Labs: Laboratory Results - last 24 hr 06/07/24 06/07/24 17:10 19:59 WBC 10.6 RBC 5.32 Hgb 14.9 Hct 46.3 MCV 87.0 MCH 28.0 MCHC 32.2 RDW Std Deviation 46.4 H RDW Coeff of Dick 14.8 H Plt Count 215 MPV 10.9 Immature Gran % (Auto) 0.400 Neut % (Auto) 79.5 H Lymph % (Auto) 10.4 L [place] % (Auto) 7.5 Eos % (Auto) 1.7 Baso % (Auto) 0.5 Absolute Neuts (auto) 8.4 H Absolute Lymphs (auto) 1.10 Nucleated RBC % 0 Sodium 136 Potassium 4.0 Chloride 103 Carbon Dioxide 26.0 Anion Gap 7 BUN 12 Creatinine 0.79 Estim Creat Clear Calc 78.38 Est GFR (MDRD) Af Amer 93 Est GFR (MDRD) Non-Af 77 BUN/Creatinine Ratio 15.2 Glucose 124 H Calcium 9.3 Total Bilirubin 0.40 AST 14 L ALT 20 Alkaline Phosphatase 40 L Troponin I High Sens 10 Total Protein 7.3 Albumin 3.3 Globulin 4.0 Albumin/Globulin Ratio 0.8 L Lipase 124 H Urine Color Yellow Urine Clarity Clear Urine pH 6.0 Ur Specific Girard 1.015 Urine Protein 30 H Urine Glucose (UA) 1000 H Urine Ketones Negative Urine Occult Blood 10 H Urine Nitrite Positive H Urine Bilirubin Negative Urine Urobilinogen Normal Ur Leukocyte Esterase Negative Urine RBC 0 SEEN Urine WBC 0-5 SEEN Ur Squamous Epith Cells 0-5 SEEN Urine Bacteria 2+ Urine Mucus 0 SEEN Radiography Chest X-Ray - ED: 2 View, Read by ED Physician, Read by Radiologist and No Acute Disease Diagnostic Testing: Clinical Impression(s) from Imaging Studies Chest X-Ray 06/07/24 17:16 IMPRESSION: 1. Cardiac silhouette at the upper limit of normal. No evidence of congestive failure. 2. Minimal atelectasis greater at the LEFT base. 3. No airspace consolidation, congestive failure or effusion. Electronically Signed: Go Ferguson MD at 17:50 EDT , PA and lateral chest x-ray was obtained. There are 2 views. On my independent interpretation, lung hill showed minimal left basilar atelectasis. There is normal cardiac silhouette. Bony thorax is normal. There is no acute process noted. Radiologist also interpreted the x-ray and agrees. EKG Initial EKG: Attestation: I personally reviewed and interpreted this EKG as follows: Interpretation: Sinus Bradycardia (57) and Non-Specific ST Changes Comments: EKG was obtained. On my independent interpretation, it showed a sinus bradycardia with a rate of 57. NC interval, QRS interval, and QTc intervals were all normal. [place] was normal. There are nonspecific ST-T wave changes. Prior EKG tracings: available for review Prior: Unchanged (06/07/2022) Treatment and Re-Evaluation :: Patient was given IV fluids, morphine, and Zofran. Patient is feeling somewhat better on reevaluation. Patient was given a GI cocktail. Patient states this helped. Patient was instructed to start with a bland diet and advance as tolerated. Patient was given a prescription for a short course of Can[place]. Patient was instructed to follow-up with her health concierge in 5 to 7 days. Patient was instructed to return if worse in any way. Patient understood and was agreeable with the plan. All questions were answered. Discharge Plan Triage Chief Complaint: Abd Pain ED Provider: Sebastian Lucia Dx/Rx/DC Orders Clinical Impression: Pancreatitis, Abdominal pain Instructions: ED Pancreatitis Prescriptions: New hydrocodone-acetaminophen 5-325 mg tablet 1 tab PO Q6H PRN PRN (Reason: Pain) 3 Days Qty: 10 0RF No Action metformin 500 mg tablet 1,000 mg PO BID Patient Comments: take 2 tablets by mouth twice a day gabapentin 600 mg tablet 600 mg PO QHS glipizide 10 mg tablet 10 mg PO DAILY metoprolol succinate 100 mg tablet extended release 24 hr 100 mg PO BID Patient Comments: take 1 tablet by mouth twice a day omeprazole 40 mg capsule,delayed release(DR/EC) 40 mg PO BID ferrous sulfate [FeroSul] 325 mg (65 mg iron) tablet 325 mg PO DAILY Rx Instructions: STOP FOR EGD spironolactone 50 mg tablet 50 mg PO DAILY valsartan 160 mg tablet 160 mg PO BID Patient Comments: take 1 tablet by mouth twice a day rosuvastatin 40 mg tablet 40 mg PO QHS duloxetine 30 mg capsule,delayed release(DR/EC) 30 mg PO DAILY gabapentin 300 mg Tablet 300 mg PO DAILY Jardiance 25 mg tablet 25 mg PO .AFTERNOON insulin glargine U-300 conc [Toujeo SoloStar U-300 Insulin] 300 unit/mL (1.5 mL) insulin pen 20 unit SUBCUT DAILY aspirin 325 mg tablet 325 mg PO DAILY Patient Comments: WILL STOP 3 DAYS PRIOR albuterol sulfate 90 mcg/actuation HFA aerosol inhaler 2 puff INHALATION Q4H PRN PRN (Reason: shortness of breath or wheezing) furosemide 20 mg tablet 20 mg PO DAILY ketoconazole 2 % cream 1 applic topical DAILY budesonide 3 mg capsule,delayed,extend.release 9 mg PO DAILY Qty: 270 3RF Primary Care Provider: Juliann Otoole Referrals: Juliann Otoole DO [Primary Care Provider] - 5-7 Days Tj Moe DO [Med Staff - Active Staff] - [facility] appointment Print Language: Belgian Disposition Disposition: Home, Self Care
--- NOTE | 2024-06-07 16:35 | EKG12_ITS ---
Test Reason : ABD PAIN Blood Pressure : / mmHG Vent. Rate : 057 BPM Atrial Rate : 057 BPM P-R Int : 194 ms QRS Dur : 088 ms QT Int : 442 ms P-R-T Axes : 054 027 038 degrees QTc Int : 430 ms Poor data quality, interpretation may be adversely affected Sinus bradycardia Cannot rule out Anterior infarct , age undetermined Abnormal ECG Confirmed by Lorenzo Black ([id number]), primer expeditor and drier WOLF MENDEZ ([id number]) on 06/08/2024 10:09:12 AM Referred By: Confirmed By:Lorenzo Black
[2024-06-07] MEDS: Morphine 4 MG/ML Syringe IV (17:16)
[2024-06-07] MEDS: Ondansetron 4 MG/2 ML Vial IV (17:16)
[2024-06-07] MEDS: 0.9% Normal Saline (1000mL) 1,000 ML 999 ML IV (17:16)
--- NOTE | 2024-06-07 17:16 | RAD_ITS ---
INDICATION: Chest pain EXAMINATION/TECHNIQUE: X-RAY - XR Chest 2 Views COMPARISON: No previous relevant examinations available for comparison.. FINDINGS: LIFE-SUPPORT AND LINES: 1. None HEART AND VESSELS: Cardiac silhouette is upper limit of normal. No evidence congestive failure. LUNGS AND PLEURAL SPACES: Lungs are clear. No focal infiltrate, consolidation or effusions. No evidence of pneumothorax. Minimal atelectasis at lung bases greater on the LEFT than RIGHT. MEDIASTINUM AND HILAR REGIONS: No masses adenopathy noted. No areas of calcification. Visualized upper airway is normal in position. BONY ELEMENTS: No acute bony changes noted. Postoperative changes involving the lower cervical spine. RAD/Chest PA and Lateral IMPRESSION: 1. Cardiac silhouette at the upper limit of normal. No evidence of congestive failure. 2. Minimal atelectasis greater at the LEFT base. 3. No airspace consolidation, congestive failure or effusion. Electronically Signed: Go Ferguson MD at 17:50 EDT ,
[2024-06-07 17:27] LABS: Absolute Neutrophil Count 8.4 X10^3/uL (2.0-7.7); Basophil# 0.05 X10^3/uL; Basophil% 0.5 % (0-1); Eosinophil# 0.18 X10^3/uL; Eosinophils% 1.7 % (0-5); Hematocrit 46.3 % (37-47); Hemoglobin 14.9 g/dL (12.0-15.0); Lymphocyte % 10.4 % (19-41); Mean Corp Hgb Conc 32.2 g/dL (32-36); Mean Platelet Vol. 10.9 fl (6.2-12.0); Monocyte% 7.5 % (0-10); NRBC Flagged by Analyzer 0 % (0-5); Neutrophil # 8.43 X10^3/uL (2.7-7.7); Neutrophil % 79.5 % (47-70); Platelet Count 215 K/mm3 (150-450); RBC Distribution Width CV 14.8 % (11.6-14.6); RBC Distribution Width SD 46.4 fl (35.1-43.9); Red Blood Count 5.32 M/mm3 (4.2-5.4); White Blood Count 10.6 K/mm3 (4.4-11.0)
[2024-06-07 17:42] LABS: ALB/GLOB Ratio 0.8 RATIO (0.9-2.4); AST(SGOT) 14 U/L (15-37); Alanine Aminotransfer ALT/SGPT 20 U/L (13-56); Albumin, Serum 3.3 g/dL (3.2-5.0); Alkaline Phosphatase 40 U/L (45-117); Anion Gap 7 (5-15); BUN 12 mg/dL (7-18); BUN/Creat Ratio 15.2 RATIO (10-20); Calcium,Total 9.3 mg/dL (8.5-10.1); Chloride 103 mmol/L (98-107); Creatinine, Serum 0.79 mg/dL (0.55-1.02); EST Glomerular Filtration Rate 77 mL/min (>60); Est Glom Filt Rate - Afr Amer 93 mL/min (>60); Estimated Creatinine Clearance 78.38 ml/min; Glucose 124 mg/dL (74-106); Lipase 124 U/L (13-75); Protein, Total 7.3 g/dL (6.4-8.2); Sodium Level 136 mmol/L (136-145); Troponin-I HS 10 pg/mL (3.0-54.0)
[2024-06-07 18:10] VITALS: BP 178/68; PULSE 71; RESP 14; O2SAT 98
[2024-06-07 20:08] VITALS: BP 175/69; PULSE 80; RESP 16
[2024-06-07 20:11] LABS: Color, Urine Yellow (Yellow); Glucose, Dipstick 1000 mg/dl (Normal); Ketone-Dipstick Negative (Negative); Leukocyte Esterase-Dipstick Negative /ul (Negative); Mucous, Urine 0 SEEN /hpf (<or=2+); Nitrite-Dipstick Positive (Negative); Occult Blood-Urine 10 /ul (Negative); Protein-Dipstick 30 mg/dl (Negative); Red Blood Cells-Urine 0 SEEN /hpf (0-5); Specific Gravity, Urine 1.015 (1.002-1.030); Urine Bilirubin Dipstick Negative (Negative); Urine Clarity Clear (Clear); Urine Urobilinogen Normal (Normal)
[2024-06-07 20:18] LABS: Bacteria 2+ /hpf (None Seen); Squamous Epithelial Cells - UA 0-5 SEEN /hpf (5-10); White Blood Cells 0-5 SEEN /hpf (0-5)
[2024-06-07] MEDS: Lidocaine 2% Viscous15 ML UDC 15 ML PO (20:32)
[2024-06-07] MEDS: Mag /Aluminum/Simeth WCH UDC 30 ML ORAL.SUSP PO (20:32)
[2024-06-07 21:56] VITALS: BP 158/73; PULSE 72; RESP 18; TEMP 36.6; O2SAT 96
--- NOTE | 2024-06-11 18:30 | ED.RN ---
PT CALLED TODAY STATING SHE LOOKED AT HER TEST RESULTS ONLINE AND SEES THAT SHE HAS A UTI AND THE DR DID NOT GIVE HER ANYTHING FOR IT. SHE ALSO STATES SHE HAD TO CALL HER PCP FOR NAUSEA MEDICINE BECAUSE HE DIDN'T GIVE HER THAT AND ONLY GAVE 10 PAIN PILLS. PT STATES SHE HAS SEEN THIS DR FOR HER ABD PAIN AND HE NEVER GIVES HER THE THINGS SHE NEEDS. STATES SHE ALSO SAW HER CHEST XRAY HAD SOMETHING WRONG AND THAT HER ELECTROCARDIOGRAM AND IT WAS ABNORMAL. STATES SHE COULD BE HAVING HEART ATTACK AND HE DIDN'T TALK TO HER ABOUT IT. ATTEMPTED TO EXPLAIN THAT MANY THINGS MAY NOT BE PERFECT BUT IT DOESN'T NECESSARILY REQUIRE TREATMENT. ENCOURAGED HER TO F/U WITH HER PCP. ALSO CHECKED WITH DR CRAMER REGARDING URINE RESULTS AND HE STATED IT DID NOT REQUIRE TREATMENT AND SHE SHOULD F/U IF SHES HAVING SYMPTOMS. THE PT IS NOT WANTING TO LISTEN TO EXPLANATIONS BUT KEEPS ARGUING THAT SHE IS STILL SICK. AGAIN REMINDED HER THAT SHE IS INSTRUCTED TO F/U AND HER PCP IS ABLE TO SEE HER RESULTS. PT STATES NO ONE IS LISTENING TO HER AND IS GIVEN THE PATIENT ADVOCATE NUMBER.
== END 2024-06-07 21:56 | disposition home or self-care (01) ==
PROVIDERS: Emergency Provider Emergency Medicine; PCP Internal Medicine; Visit Provider Emergency Medicine
DX: K85.90 Acute pancreatitis without necrosis or infection, unspecified (principal); J44.9 Chronic obstructive pulmonary disease, unspecified; E11.9 Type 2 diabetes mellitus without complications; F17.210 Nicotine dependence, cigarettes, uncomplicated; Z86.16 Personal history of COVID-19
CPT/HCPCS: 71046; 80053; 81001; 83690; 84484; 85025; 93005; 96361; 96374; 96375; 96376; 99284; J7030; J2405

== ENCOUNTER → 2024-10-25 | Outpatient (CLI) | payer MEDICARE, MEDICAID, SELFPAY ==
[2024-10-25 14:51] LABS: Lipase 155 U/L (13-75)
== END | disposition home or self-care (01) ==
PROVIDERS: PCP Internal Medicine; Referring Provider Student in an Organized Health Care Education/Training Program; Visit Provider Student in an Organized Health Care Education/Training Program
DX: K85.90 Acute pancreatitis without necrosis or infection, unspecified (principal)
CPT/HCPCS: 36415; 83690

== ENCOUNTER → 2024-11-24 | Outpatient (CLI) | payer MEDICARE, MEDICAID, SELFPAY ==
--- NOTE | 2024-11-24 10:35 | US_ITS ---
PROCEDURE: Ultrasound of the right upper quadrant. REASON FOR EXAM: Right upper quadrant pain/epigastric pain. COMPARISON: None FINDINGS: Liver: Grossly normal size and echotexture. Gallbladder: No stones, sludge, wall thickening or tenderness. Common bile duct: Normal measuring 6 mm.. Pancreas: Visualized portions are sonographically unremarkable. There is atrophy of the right kidney. It measures 8.3 cm x 3.7 cm x 3.1 cm. There is cortical thinning measuring 6 mm. Numerous cysts are seen in the right kidney. The largest cyst measures 1.8 cm x 1.9 cm x 1.4 cm. No right upper quadrant ascites. US/Gallbladder IMPRESSION: Atrophy of the right kidney as described with multiple cysts. No other abnormality is seen. [facility]
--- NOTE | 2024-11-24 13:07 | MRI_ITS ---
PROCEDURE: MRCP ABDOMEN WITHOUT CONTRAST REASON FOR EXAM: Pancreatitis. Abdominal pain. TECHNIQUE: MRCP without contrast. 3-D reformatted images generated by the technologist using MRI scanner software. COMPARISON: Ultrasound right upper quadrant from 11/24/2024. CT abdomen/pelvis from 03/21/2023. FINDINGS: Lung bases are clear. Visualized liver, spleen, and adrenal glands are unremarkable. No filling defects are seen within the gallbladder to suggest cholelithiasis. No gallbladder wall thickening or pericholecystic fluid is present. Pancreas is unremarkable. Common bile duct is within normal limits 4 mm in diameter with no filling defect to suggest choledocholithiasis. No pancreatic ductal dilatation is identified. There is an infrarenal abdominal aortic aneurysm measuring 3.8 x 3.4 cm in AP and transverse dimensions respectively. There is atrophy of the right kidney. Renal cysts are identified with the largest involving the left kidney measuring 6.2 x 5.6 cm. Right perinephric stranding is likely on a chronic basis. No free fluid is identified. MRI/MRCP Abdomen without Contrast IMPRESSION: 1. No evidence of common bile ductal dilatation or choledocholithiasis. 2. No evidence for acute pancreatitis. 3. Atrophy of the right kidney with chronic right perinephric stranding. 4. Bilateral renal cysts. 5. Redemonstration of an infrarenal abdominal aortic aneurysm. Reading Location: [facility]
== END | disposition home or self-care (01) ==
LOC: US 10:30
PROVIDERS: PCP Internal Medicine; Referring Provider Internal Medicine; Visit Provider Student in an Organized Health Care Education/Training Program
DX: R10.9 Unspecified abdominal pain (principal)
CPT/HCPCS: 76705

== ENCOUNTER → 2025-01-02 | Outpatient (CLI) | payer MEDICARE, MEDICAID, SELFPAY ==
[2025-01-05 15:09] LABS: Pancreatic Elastase, Fecal 216 (>200)
== END | disposition home or self-care (01) ==
LOC: LABSPEC 14:35
PROVIDERS: PCP Internal Medicine; Referring Provider Student in an Organized Health Care Education/Training Program; Visit Provider Student in an Organized Health Care Education/Training Program
DX: K85.90 Acute pancreatitis without necrosis or infection, unspecified (principal)
CPT/HCPCS: 82653